=== PATIENT | female | born 1995 | race Caucasian/White ===

== ENCOUNTER → 2018-12-31 13:17 | Outpatient (CLI) | payer OTHER, SELFPAY ==
[2018-12-31 15:54] LABS: HCG,Quantitative 186 mIU/mL
== END ==
PROVIDERS: Visit Provider Obstetrics & Gynecology
DX: Z32.00 Encounter for pregnancy test, result unknown (principal)
CPT/HCPCS: 36415; 84702

== ENCOUNTER → 2019-01-27 16:01 | Outpatient (CLI) | payer OTHER, SELFPAY ==
[2019-01-27 16:44] LABS: Basophils % 0.4 % (0.1-2.0); Eosinophils # 0.1 K/mm3 (0.0-0.4); Eosinophils % 0.5 % (0.1-12.0); Hematocrit 36.4 % (37.0-47.0); Hemoglobin 11.8 g/dL (12.2-16.2); Lymphocytes # 2.3 K/mm3 (0.7-4.5); Lymphocytes % 21.6 % (10-50); Mean Corpuscular HGB Conc 32.4 g/dL (31.8-35.4); Mean Corpuscular Hemoglobin 28.8 pg (27.0-31.2); Mean Corpuscular Volume 88.9 fl (81-99); Mean Platelet Volume 7.4 fl (7.4-10.4); Monocytes # 0.3 K/mm3 (0.1-1.0); Monocytes % 2.8 % (1.7-9.3); Neutrophils # 7.9 K/mm3 (1.8-7.8); Neutrophils % 74.8 % (37.0-80.0); Platelet Count 300 K/mm3 (142-424); Red Cell Distribution Width 12.2 % (11.5-17.5); White Blood Count 10.6 K/mm3 (4.8-10.8)
[2019-01-29 08:53] LABS: HIV Screen 4th Generation wRfx Non Reactive (Non Reactive); Rubella Antibodies, IgG 2.02 index (Immune >0.99)
[2019-01-29 09:16] LABS: Rapid Plasma Reagin Ab Titer Non Reactive (NonRea<1:1)
[2019-01-29 10:21] LABS: Hepatitis B Surface Antigen Negative (Negative); Hepatitis C Antibody <0.1 s/co ratio (0.0-0.9)
== END ==
PROVIDERS: Visit Provider Obstetrics & Gynecology
DX: Z34.90 Encounter for supervision of normal pregnancy, unspecified, unspecified trimester (principal)
CPT/HCPCS: 36415; 85025; 86592; 86703; 86762; 86850; 87340; 87380; G0432

== ENCOUNTER → 2019-04-21 14:07 | Outpatient (CLI) | payer OTHER, SELFPAY ==
--- NOTE | 2019-04-21 14:09 | US_ITS ---
US OB /maternal detail: INDICATION: ITS.REASON: 20 wk + Anatomy Scan-US OB COMPLETE ORDERING PHYSICIAN: Salma Valdivia MD PATIENT AGE: 23 years TECHNIQUE: ultrasound transabdominal scanning. COMPARISON: No previous relevant studies. FINDINGS: Single viable intrauterine gestation. Cephalic position. Placenta: Anterior high placenta grade 1. There is average amount fluid. The cervix appears satisfactory. Closed and measuring 4 cm in length. Complete survey performed and was unremarkable on the submitted images as in PACS. No discrete anomalies identified on survey imaging by technologist. Active fetus. Three-vessel cord with satisfactory umbilical cord insertion. 4- chamber heart noted. Survey of brain & ventricles unremarkable. Face and neck survey unremarkable. Diaphragm and chest views unremarkable. Abdomen: Both kidneys noted and unremarkable. The stomach was not visualized during the exam. Spine: Survey of the spine satisfactory with no anomalies identified nor imaged. Both arms and legs noted. Amniotic Fluid: Adequate. Maternal adnexa: No significant findings. Measurements: Average ultrasound age 20w1d. Gestational Age 19w6d. Estimated due date by ultrasound age 1009/07/2019. Estimated weight 328 grams. BPD = 20w2d OFD = 20w3d HC = 19w5d AC = 20w0d FL = 20w0d Growth Percentile= 56% Heart Rate = 163 Cerebellum = 20w3d Humerus = 19w6d HC/AC is 1.15 1.09-1.26). CI is 78% (70-86%). FL/BPD is 70%. FL/AC is 22%. IMPRESSION: There is a single live fetus present in cephalic presentation with an average ultrasound age of 20 weeks and 1 day. All parameters correlate. The stomach was not visualized during the exam. Consider follow-up exam to further evaluate. There was average amount of amniotic fluid. If nonvisualization of the stomach is persistent then, one must consider esophageal atresia however, the amniotic fluid volume should be elevated. Otherwise unremarkable
== END ==
PROVIDERS: Visit Provider Obstetrics & Gynecology
DX: Z36.0 Encounter for antenatal screening for chromosomal anomalies (principal)
CPT/HCPCS: 76811

== ENCOUNTER 2019-06-16 08:04 | Outpatient (CLI) | payer OTHER, SELFPAY ==
[2019-06-16 08:47] LABS: Glucose,Fasting 77 mg/dL (60-105)
[2019-06-16 10:00] LABS: Glucose 1 Hour 126 mg/dL (74-106)
[2019-06-16 10:15] VITALS: BP 133/78; PULSE 105; RESP 18; O2SAT 95
== END 2019-06-16 10:20 | disposition home or self-care (01) ==
PROVIDERS: Visit Provider Obstetrics & Gynecology
DX: Z34.90 Encounter for supervision of normal pregnancy, unspecified, unspecified trimester (principal)
CPT/HCPCS: 36415; 82951; 96372; J2790

== ENCOUNTER → 2019-08-11 17:05 | Outpatient (CLI) | payer OTHER, SELFPAY | PROVIDERS: Visit Provider Obstetrics & Gynecology | DX: Z34.90 Encounter for supervision of normal pregnancy, unspecified, unspecified trimester (principal) | CPT/HCPCS: 86403 ==

== ENCOUNTER → 2019-08-31 12:47 | Outpatient (CLI) | payer OTHER, SELFPAY ==
--- NOTE | 2019-08-31 12:48 | US_ITS ---
PROCEDURE: US OB FOLLOW UP CLINICAL INDICATION: LGA and Check MJ Large for gestational age COMPARISON: OBFEMAT US OB /maternal detail from 04/21/2019 FINDINGS: There is a single live fetus which is in cephalic presentation. heart and body motion noted. Average ultrasound age is 39 weeks and 1 day. BPD 39 weeks 4 days, HC 41 weeks 2 days, FL 36 weeks 4 days. Estimated weight is 4277 g which is 98th percentile. Amniotic fluid index is 11 cm. The placenta is anterior and grade 2 IMPRESSION: Live IUP at 39 weeks 1 day with an estimated weight of 4277 g which is 98th percentile indicating large for gestational age. Please see above for detail Dictated by: Emmanuel Donovan MD 08/31/2019 18:02 Electronically signed by Emmanuel Donovan MD in [place] 08/31/2019 18:02
== END ==
PROVIDERS: Visit Provider Obstetrics & Gynecology
DX: O36.63X1 Maternal care for excessive fetal growth, third trimester, fetus 1 (principal); O41.8X30 Other specified disorders of amniotic fluid and membranes, third trimester, not applicable or unspecified
CPT/HCPCS: 76816

== ENCOUNTER 2019-09-05 15:32 | Inpatient (IN) ==
[2019-09-05 16:18] LABS: Basophils % 0.2 % (0.1-2.0); Eosinophils # 0.1 K/mm3 (0.0-0.4); Eosinophils % 0.9 % (0.1-12.0); Hematocrit 34.1 % (37.0-47.0); Hemoglobin 11.2 g/dL (12.2-16.2); Lymphocytes # 1.6 K/mm3 (0.7-4.5); Mean Corpuscular HGB Conc 32.8 g/dL (31.8-35.4); Mean Corpuscular Volume 86.3 fl (81-99); Mean Platelet Volume 9.4 fl (7.4-10.4); Monocytes # 0.4 K/mm3 (0.1-1.0); Monocytes % 3.4 % (1.7-9.3); Neutrophils # 8.7 K/mm3 (1.8-7.8); Neutrophils % 80.5 % (37.0-80.0); Platelet Count 202 K/mm3 (142-424); Red Blood Count 3.95 M/mm3 (4.20-5.40); Red Cell Distribution Width 14.7 % (11.5-17.5); White Blood Count 10.8 K/mm3 (4.8-10.8)
[2019-09-05 17:18] LABS: Microscopic, Urine URINE MICROSCOPIC (MICROSCOPIC)
[2019-09-05 17:22] LABS: Appearance,Urine CLOUDY (Clear); Bilirubin,Urine Negative (Negative); Blood, Urine 1+ (Negative); Color,Urine YELLOW (Yellow); Glucose,Urine (UA) Negative (Negative); Ketones,Urine Negative (Negative); Leukocyte Esterase,Urine 1+ (Negative); Protein,Urine TRACE (Negative); Urobilinogen,Urine 0.2 EU/dl (0.2)
[2019-09-05 17:39] LABS: Bacteria,Urine 2+ /lpf
[2019-09-05 17:43] LABS: Amphetamine/Metha Screen,Urine Negative ng/mL (<1000); Barbiturates Screen,Urine Negative ng/mL (<200); Benzodiazepines Screen,Urine Negative ng/mL (<200); Cannabinoid Screen,Urine Negative ng/mL (<50); Cocaine Screen,Urine Negative ng/mL (<300); Methadone Screen,Urine Negative ng/mL (<300); Opiate Screen,Urine Negative ng/mL (<300); Phencyclidine Screen,Urine Negative ng/mL (<25)
--- OUTSIDE RECORDS SUMMARY | 2019-09-06 12:35 | External Medical Summary | Continuity of Care Document ---
:1995 Author Organization [facility] Address [address] [place] [address] [address] [place] [address] Phone Care Team Providers Name Role Phone Skip Attending Provider Skip Primary Care Provider Provider Primary Care Provider Unavailable Allergies, Adverse Reactions, Alerts Allergen Type Severity Reaction Last Updated Verified Status nitrofurantoin Allergy Moderate September 02, 2019 Yes Active Medications Medication Status Dose Units Route Sig Qty Days Start Date End Date Instructions Vit Active 1 TAB Oral Daily January Calc,Iron,Folic 2018 2:22pm Problems Active Problems Medical Problem Onset Date Status Threatened Active Rh negative status during in first trimester Active Active Anemia affecting Active Vaginal bleeding Active Obesity (BMI 35.0-39.9 without comorbidity) Active Rh negative status during Acti ve First trimester Active First trimester bleeding Active Inactive/Resolved Problems Medical Problem Onset Date Status Hypokalemia Resolved Procedures Procedure Date Performed Status Urine Culture September 05, 2019 active US OB follow up August 31, 2019 completed Group B Streptococcus Screen (DARWIN) August 11, 2019 compl eted Relevant Diagnostic Tests and/or Laboratory Data Laboratory Results Test Date/Time Result Interpretation Reference Result Perfo rming Range Comment Site Urine Color July Caroline 2018 4:35pm Urine Color July Yellow 2018 1:38pm Urine Color August Yellow 2018 1:38pm Urine Color August Yellow 2018 3:24pm Urine Color August Yellow 2018 2:38pm Urine Color August Yellow 2018 3:41pm Urine Appearance July Cloudy 2018 4:35pm Urine Appearance July Clear 2018 1:38pm Urine Appearance October Clear 2018 1:38pm Urine Appearance October Clear 2018 3:24pm Urine Appearance October Clear 2018 2:38pm Urine Appearance October Clear 2018 3:41pm Urine Glucose Lakia Negative (UA) 2018 4:35pm Urine Glucose Lakia Negative (UA) 2018 1:38pm Urine Glucose October Negative (UA) 2018 1:38pm Urine Glucose October Negative (UA) 2018 3:24pm Urine Glucose October Negative (UA) 2018 2:38pm Urine Glucose October Negative (UA) 2018 3:41pm Urine Bilirubin Lakia negative 2018 4:35pm Urine Bilirubin Lakia negative 2018 1:38pm Urine Bilirubin October small 2018 1:38pm Urine Bilirubin August negative 2018 3:24pm Urine Bilirubin October negative 2018 2:38pm Urine Bilirubin October small 2018 3:41pm Urine Ketones Lakia Negative 2018 mg/dL 4:35pm Urine Ketones Lakia Trace 5 2018 mg/dL 1:38pm Urine Ketones October Moderate 2018 40 mg/dL 1:38pm Urine Ketones October Trace 5 2018 mg/dL 3:24pm Urine Ketones October Negative 2018 mg/dL 2:38pm Urine Ketones October Small 15 2018 mg/dL 3:41pm Urine Protein July 30+ 2018 4:35pm Urine Specific Lakia 1.030 Echo 2018 1:38pm Urine Protein August 302018 1:38pm Urine Protein August 302018 3:24pm Urine Protein August 30+ 2018 2:38pm Urine Protein August 100++ 2018 3:41pm Urine pH Lakia 6.0 2018 4:35pm Urine Blood Lakia negative 2018 1:38pm Urine pH October 6.0 2018 1:38pm Urine pH August 6.5 2018 3:24pm Urine pH October 6.5 2018 2:38pm Urine pH October 6.0 2018 3:41pm Urine Blood July negative 2018 4:35pm Urine pH Lakia 6.0 2018 1:38pm Urine Blood October negative 2018 1:38pm Urine Blood October negative 2018 3:24pm Urine Blood October negative 2018 2:38pm Urine Blood October negative 2018 3:41pm Urine Specific Lakia 1.030 Echo 2018 4:35pm Urine Protein Lakia 30+ 2018 1:38pm Urine Specific October 1.025 Echo 2018 1:38pm Urine Specific October 1.030 Echo 2018 3:24pm Urine Specific October 1.030 Echo 2018 2:38pm Urine Specific October 1.030 Echo 2018 3:41pm Urine Lakia 0.2 Urobilinogen 2018 Dipstick 4:35pm Urine Lakia 0.2 Urobilinogen 2018 Dipstick 1:38pm Urine October 0.2 Urobilinogen 2018 Dipstick 1:38pm Urine October 0.2 Urobilinogen 2018 Dipstick 3:24pm Urine October 0.2 Urobilinogen 2018 Dipstick 2:38pm Urine October 0.2 Urobilinogen 2018 Dipstick 3:41pm Urine Nitrate Lakia Negative 2018 4:35pm Urine Nitrate Lakia Negative 2018 1:38pm Urine Nitrate October Negative 2018 1:38pm Urine Nitrate October Negative 2018 3:24pm Urine Nitrate October Negative 2018 2:38pm Urine Nitrate October Negative 2018 3:41pm Urine Leukocyte Lakia Trace Esterase 2018 4:35pm Urine Leukocyte Lakia Negative Esterase 2018 1:38pm Urine Leukocyte October Trace Esterase 2018 1:38pm Urine Leukocyte October Trace Esterase 2018 3:24pm Urine Leukocyte October Trace Esterase 2018 2:38pm Urine Leukocyte October Trace Esterase 2018 3:41pm White Blood Count August 10.8 K/mm3 4.8-10.8 [facility], [address] [place] [address] 2018 4:07pm [place] [address] Red Blood Count August 3.95 M/mm3 4.20-5.40 [facility], [address] [place] [address] 2018 4:07pm [place] [address] Hemoglobin August 11.2 g/dL 12.2-16.2 [facility], [address] [place] [address] 2018 4:07pm [place] [address] Hematocrit August 34.1 % 37.0-47.0 [facility], [address] [place] [address] 36 E 2018 4:07pm [place] [address] Mean Corpuscular October 86.3 fl 81-99 [facility], [address] [place] [address] 36 E Volume 2018 4:07pm [place] [address] Mean Corpuscular October 28.3 pg 27.0-31.2 [facility], [address] [place] [address] 36 E Hemoglobin 2018 4:07pm [place] [address] Mean Corpuscular October 32.8 g/dL 31.8-35.4 [facility], [address] [place] [address] 36 E Hemoglobin 2018 Concent 4:07pm [place] [address] Red Cell August 14.7 % 11.5-17.5 [facility], [address] [place] [address] 36 E Distribution 2018 Width 4:07pm [place] [address] Platelet Count August 202 K/mm3 142-424 [facility], [address] [place] [address] 36 E 2018 4:07pm [place] [address] Mean Platelet August 9.4 fl 7.4-10.4 [facility], [address] [place] [address] E Volume 2018 4:07pm [place] [address] Neutrophils (%) August 80.5 % 37.0-80.0 [facility], [address] [place] [address] 36 E (Auto) 2018 4:07pm [place] [address] Lymphocytes (%) August 15.0 % 10-50 [facility], [address] [place] [address] E (Auto) 2018 4:07pm [place] [address] Monocytes (%) August 3.4 % 1.7-9.3 [facility], [address] [place] [address] E (Auto) 2018 4:07pm [place] [address] Eosinophils (%) August 0.9 % 0.1-12.0 [facility], [address] [place] [address] 36 E (Auto) 2018 4:07pm [place] [address] Basophils (%) August 0.2 % 0.1-2.0 [facility], [address] [place] [address] 36 E (Auto) 2018 4:07pm [place] [address] Neutrophils # October 8.7 K/mm3 1.8-7.8 [facility], [address] [place] [address] E (Auto) 2018 4:07pm [place] [address] Lymphocytes # October 1.6 K/mm3 0.7-4.5 [facility], [address] [place] [address] 36 E (Auto) 2018 4:07pm [place] [address] Monocytes # October 0.4 K/mm3 0.1-1.0 [facility], [address] [place] [address] 36 E (Auto) 2018 4:07pm [place] [address] Eosinophils # October 0.1 K/mm3 0.0-0.4 [facility], [address] [place] [address] E (Auto) 2018 4:07pm [place] [address] Basophils # October 0.0 K/mm3 0-0.2 [facility], [address] [place] [address] E (Auto) 2018 4:07pm [place] [address] Urine Color October Yellow Yellow [facility], [address] [place] [address] 36 E 2018 4:10pm [place] [address] Urine Appearance October Cloudy Clear [facility], [address] [place] [address] E 2018 4:10pm [place] [address] Urine pH August 7.0 5.0-8.5 [facility], [address] [place] [address] 36 E 2018 4:10pm [place] [address] Urine Specific October 1.020 1.005-1.030 [facility], [address] [place] [address] E Echo 2018 4:10pm [place] [address] Urine Protein October Trace Negative [facility], [address] [place] [address] 36 E 2018 4:10pm [place] [address] Urine Glucose October Negative Negative [facility], [address] [place] [address] E (UA) 2018 4:10pm [place] [address] Urine Ketones October Negative Negative [facility], [address] [place] [address] 36 E 2018 4:10pm [place] [address] Urine Blood October 1+ Negative [facility], [address] [place] [address] E 2018 4:10pm [place] [address] Urine Nitrate August Negative Negative [facility], [address] [place] [address] E 2018 4:10pm [place] [address] Urine Bilirubin August Negative Negative [facility], [address] [place] [address] E 2018 4:10pm [place] [address] Urine October 0.2 EU/dl [facility], [address] [place] [address] E Urobilinogen 2018 4:10pm [place] [address] Urine Leukocyte August 1+ Negative [facility], [address] [place] [address] E Esterase 2018 4:10pm [place] [address] Urine RBC August 14 #/hpf [facility], [address] [place] [address] E 2018 4:10pm [place] [address] Urine WBC August 19 [facility], [address] [place] [address] E 2018 #/hpf 4:10pm [place] [address] Urine Squamous August 19 [facility], [address] [place] [address] E Epithelial Cells 2018 #/hpf 4:10pm [place] [address] Urine Bacteria August 2+ /lpf NONE [facility], [address] [place] [address] E 2018 4:10pm [place] [address] Fasting Glucose June 16, 77 mg/dL 60-105 [facility], [address] [place] [address] 36 E 2018 8:05am [place] [address] Glucose 1 Hour June 16, 126 mg/dL 74-106 [facility], [address] [place] [address] 36 E 2018 8:05am [place] [address] Urine Fasting June 16, Negative [facility], [address] [place] [address] E Glucose 2018 8:05am mg/[place] [address] Urine Glucose 1 June 16, Negative [facility], [address] [place] [address] E Hour 2018 8:05am mg/dL [place] [address] Urine Opiates August Negative [facility], [address] [place] [address] E Screen 2018 ng/mL 4:10pm [place] [address] Urine Barbituates August Negative [facility], [address] [place] [address] E Screen 2018 ng/mL 4:10pm [place] [address] Urine August Negative [facility], [address] [place] [address] E Phencyclidine 2018 ng/mL Screen 4:10pm [place] [address] Urine October Negative [facility], [address] [place] [address] 36 E Amphetamines 2018 ng/mL Screen 4:10pm [place] [address] Urine Methadone August Negative [facility], [address] [place] [address] E Screen 2018 ng/mL 4:10pm [place] [address] Urine October Negative [facility], [address] [place] [address] E Benzodiazepines 2018 ng/mL Screen 4:10pm [place] [address] Urine Cocaine August Negative [facility], [address] [place] [address] E Screen 2018 ng/mL 4:10pm [place] [address] Urine Marijuana August Negative [facility], [address] [place] [address] E (THC) Screen 2018 ng/mL 4:10pm [place] [address] Microbiology Results Procedure Source Result Collection Result Result Performin g Date/Time Date/Time Comment Site Group B Vaginal Negative for August 11, August 14, H [facility], [address] [place] [address] E Streptococcus Group B 2018 1:37pm 2018 9:06am Screen (DARWIN) [place] [address] s. Diagnostic Imaging Reports Report Dictated Date/Time Dictated By Status Radiology Report August 31, 2019 1:28pm Emmanuel Donovan MD compl [place]ed [place] [address] [place] [address] Ultrasoun d Report Sig federico Patient: Caroline Ca MR#: [id number] : 1995 Acct:[id number] Age/Sex: 24 / F ADM Date: 9 Loc: RAD Attending Dr: Salma Valdivia MD Ordering Physician: Salma Valdivia MD Date of Service: 08/31/19 Procedure(s): US OB follow up Accession Number(s): [id number] cc: Emmanuel Donovan MD; Provider,Referral MD~ PROCEDURE: US OB FOLLOW UP CLINICAL INDICATION: LGA and Check MJ Large for gestational age COMPARISON: OBFEMAT US OB /matern al detail from 04/21/2019 FINDINGS: There is a single live fetus which is i n cephalic presentation. heart and body motion noted. Average ultrasound age is 39 weeks and 1 day. BPD 39 weeks 4 days, HC 41 weeks 2 days, FL 36 weeks 4 days. Estimated weight is 4277 g which is 98th percentile. Amniotic fluid index is 11 cm. The placenta is anterior and grade 2 IMPRESSION: Live IUP at 39 weeks 1 day with an federico mated weight of 4277 g which is 98th percentile indicating lar ge for gestational age. Please see above for detail Dictated by: Emmanuel Donovan MD 08/31/2019 18:02 Electronically signed by Emmanuel Donovan in [place] 08/31/2019 18:02 Advance Directives Advance Directive Response Recorded Date/Time Does the patient have an advanced directive on No August 11, 2019 2:13pm file? Living Will No August 11, 2019 2: 13pm Does the patient have an advanced directive on No August 11, 2019 2:36pm file? Living Will No August 11, 2019 2: 36pm Does the patient have an advanced directive on No September 02, 2019 2:52pm file? Living Will No September 02, 2019 2 :52pm Does the patient have an advanced directive on No June 16, 2019 6:56pm file? Living Will No June 16, 2019 6:5 6pm Chief Complaint and Reason for Visit Chief Complaint LAB WORK INJECTION lab work growth ASI Induction Encounters Encounter Location(s) Arrival/Admit Date Discharge/Depart Date Provider(s) Departed [facility] Physician June 16, 2019 June 16, 2019 Salma Valdivia [facility] 8:04am 10:20am Departed [facility] Physician June 16, 2019 June 16, 2019 Salma Valdivia Physician/[facility] 9:31am 10:01am eleazar [facility] Visit Departed [facility] Physician July 14July 14, 2019 Salma Valdivia Physician/[facility] 2018 1:10pm 1:47pm MD bush [facility] Visit Departed [facility] Physician July 28, July 28, 2019 Physician Joel ra/[facility] 2018 1:13pm 1:56pm MD [facility] Visit Departed [facility] Physician August 11, 2019 August 11, 2019 Drew Valdivia , Physician/[facility] 1:16pm 2:22pm MD [facility] Visit Registered [facility] Physician August 11, 2019 Salma del angel , Clinical Group-Lab Drop 5:05pm MD Off to [facility] Departed [facility] Physician August 19, 2019 August 19, 2019 Elva Valdivia , Physician/[facility] 1:49pm 3:13pm MD [facility] Visit Departed [facility] Physician August 26, 2019 August 26, 2019 Elva Valdivia , Physician/[facility] 2:15pm 3:49pm [facility] Visit Registered [facility] Physician August 31, 2019 Salma spaulding , Clinical Group-Radiology 12:47pm MD Departed [facility] Physician September 02, 2019 September 02, 2019 Elva Valdivia Physician/[facility] 2:35pm 4:25pm [facility] Visit Admitted [facility] Physician September 05, 2019 Salma spaulding , Inpatient Group-Obstetric 3:32pm Registered [facility] Physician September 06, 2019 Salma spaulding , Inpatient Group- 12:27pm MD Assessments No Assessments Information Available Functional Status Observation Response Date Recorded Ambulation Ability Independent June 16, 2019 10: 20am Functional status ambulatory August 27, 2019 1 2:15pm Functional status ambulatory August 19, 2019 3 :39pm Functional status ambulatory August 11, 2019 2: 13pm Oral Care Ability Independent August 11, 2019 2: 13pm Bathing Ability Independent August 11, 2019 2: 13pm Eating (Feeding) Ability Independent August 11 2:13pm Toileting Ability Independent August 11, 2019 2: 13pm Ambulation Ability Independent August 11, 2019 2: 13pm Functional status ambulatory August 11, 2019 2: 36pm Functional status ambulatory September 02, 2019 2 :52pm Functional status ambulatory July 28, 2019 1:57pm Functional status ambulatory June 16, 2019 6:5 6pm Goals No Goals Information Available Mental Status Observation Response Date Recorded Able to Read Yes September 05, 2019 4 :15pm Able to Write Yes September 05, 2019 4 :15pm Medical Equipment No Medical Equipment Information available Insurance Providers Guarantor Caroline Ca Address [address] [place] [address] Contact Info. Home Phone: Payer Policy Id Coverage Id Subscriber's Subscriber Id Effective E xpiration Name Date Date Oren [id number] Caroline Ruiz [id number] [employer] [place] Self Pay Self N/A [facility] [id number] JEM [place] [id number] [facility] Plan of Treatment Labor precautions, kick counts RTO 1 wk Routine care RTO 1 wk Labor precautions, kick counts advised GBS collected today RTO 1 wk PTL precautions, kick counts RTO 2 wks RTO 2 wks GBS culture next appointment PTL precautions, kick counts Routine care S/P rhogam today RTO 4 wks Future Tests Future scheduled test information is unavailable Pending Tests Pending diagnostic test information is unavailable Future Visits Future appointment information is unavailable Referrals to Other Providers Reason for Referral Start Provider Provider Contact Provider Address Referral Date Information Admission to [facility] September [address] Future Procedures Future procedure information is unavailable Future Medications Future medication information is unavailable Patient Instructions How to Breastfeed Your Baby Anemia How to Breastfeed Your Baby Overweight in Adults Anemia Overweight in Adults Anemia Diet Overweight in Adults Anemia Diet Overweight in Adults Anemia Diet Overweight in Adults Anemia Diet How to Breastfeed Your Baby Diet Social History Observation Status Date of Observation Patient currently September 02, 2019 Assigned Sex Female Vital Signs Vital Reading Result Reference Range Collection Date/ Time Heart Rate 105 /min 60-90 June 16, 2019 10:15am Respiratory rate 18 /min 12-24 June 16, 9 10:15am Oxygen saturation by Pulse 95 % 95-100 2018 10:15am oximetry BP Systolic 133 mm[Hg] 110-140 June 16, 2019 10:15am BP Diastolic 78 mm[Hg] 60-90 June 16, 2019 10:15am Height 177.8 cm June 16, 2019 9:35am Weight 120.20 kg June 16, 2019 9:35am BP Systolic 124 mm[Hg] 110-140 June 16, 2019 9:35am BP Diastolic 80 mm[Hg] 60-90 June 16, 2019 9:35am BMI (Body Mass Index) 38.0 kg/m2 June 9:35am Height 177.8 cm July 14, 2 019 1:22pm Weight 122.46 kg July 14, 2 019 1:22pm BP Systolic 118 mm[Hg] 110-140 July 14, 2 019 1:22pm BP Diastolic 72 mm[Hg] 60-90 July 14, 2 019 1:22pm BMI (Body Mass Index) 38.7 kg/m2 July 14, 2019 1:22pm Height 177.8 cm July 28, 2019 1:37pm Weight 124.28 kg July 28, 2019 1:37pm Heart Rate 88 /min 60-90 July 28, 2019 1:37pm BP Systolic 128 mm[Hg] 110-140 July 28, 2019 1:37pm BP Diastolic 76 mm[Hg] 60-90 July 28, 2019 1:37pm BMI (Body Mass Index) 39.3 kg/m2 July 28, 2019 1:37pm Height 177.8 cm August 11 201 9 1:22pm Weight 124.73 kg August 11 201 9 1:22pm Heart Rate 76 /min 60-90 August 11 201 9 1:22pm BP Systolic 110 mm[Hg] 110-140 August 11 201 9 1:22pm BP Diastolic 94 mm[Hg] 60-90 August 11 201 9 1:22pm BMI (Body Mass Index) 39.4 kg/m2 August 1:22pm Height 177.8 cm August 19 2:44pm Weight 127.00 kg August 19 2:44pm BP Systolic 122 mm[Hg] 110-140 August 19 2:44pm BP Diastolic 84 mm[Hg] 60-90 August 19 2:44pm BMI (Body Mass Index) 40.1 kg/m2 August 192018 2:44pm Height 177.8 cm August 26 2:26pm Weight 128.82 kg August 26 2:26pm BP Systolic 118 mm[Hg] 110-140 August 26 2:26pm BP Diastolic 78 mm[Hg] 60-90 August 26 2:26pm BMI (Body Mass Index) 40.7 kg/m2 August 262018 2:26pm Height 177.8 cm September 02 2:44pm Weight 128.82 kg September 02 2:44pm BP Systolic 140 mm[Hg] 110-140 September 02 2:44pm BP Diastolic 94 mm[Hg] 60-90 September 02 2:44pm BMI (Body Mass Index) 40.7 kg/m2 September 022018 2:44pm Height 49003.8 cm September 05 4:15pm Weight 128.82 kg September 05 4:15pm Body Temperature 98.0 [degF] 97.6-99.6 September 06, 2 019 8:00am Heart Rate 88 /min 60-90 September 06 8:00am Respiratory rate 17 /min -September 06, 2 019 8:00am Oxygen saturation by Pulse 98 % 95-100 Octob 2018 8:00am oximetry BP Systolic 118 mm[Hg] 110-140 September 06 8:00am BP Diastolic 74 mm[Hg] 60-90 September 06 8:00am BMI (Body Mass Index) 0.0 kg/m2 September 052018 4:15pm
--- NOTE | 2019-09-06 14:18 | Progress Note ---
[facility] Anesthesia Checklist - Patient Identification Patient Identification: Arm Band, Verbal (Name & ) - Structural Data Admitted From: Home Planned Operative Procedure/s: labor epidural Consent for Planned Operative Procedure(s) Verified: Yes Verified Documents: History and Physical - NPO Status Verified Time NPO: 12:00 - Additional verifications Patient : Yes Anesthesia Reactions: No Hx Blood Transfusions: No Blood Transfusion Reaction: No Cephalosporin Allergy: No Previous Colonoscopy: No - Cardiovascular Assessment Heart Sounds: S1 & S2 Pulse Strength: Baseline Pulse Rhythm: Regular Peripheral Edema: No - Airway Assessment C-Spine Mobility Assessed: Yes TMJ Mobility Assessed: Yes Dentition: Good Dentition - Neurological Assessment Level of Consciousness: Awake, Alert, Appropriate Hx Seizures: No Numbness or tingling in extremities: No - Anesthesia Plan Anesthesia Risk discussed: Yes Anesthesia Plan: Verified ASA Class: II Anesthesia Type: Epidural [facility] History I have reviewed the patient's past medical history: Yes Medical History: Reports:: Anxiety, Asthma, Depression *Have you ever received a pneumonia vaccine?: No *Have you received a flu vaccine this season?: No Other Medical History: Reports: Other Anesthesia experience/problems:: none Laterality Cases: Other Surgeries: No: Amputation: No Fractures: Yes - *Social History Smoking Status: Never smoker Alcohol Intake: never Alcohol Intake Frequency:: holidays/special occasions only Substance Use Type: denies use *Occupational Status:: employed Housing: house Household Members: family *Travel in the last 8 weeks: None - Psychiatric History Pschychiatric History:: Reports:: Anxiety, Depression Family Hx:: Cancer, Diabetes, Heart Attack, Hypertension, Hyperlipidemia, Thyroid Disorder, Asthma Para: 0
--- NOTE | 2019-09-06 19:12 | History & Physical Report ---
OB - H&P: HPI Antepartum - History of Present Illness Chief complaint: Induction of Labor, 39 4/7 weeks History of present illness: 24 year old G1 @ 39 4/7 wks Scheduled for elective induction due to gestational hypertension No history of CHTN, significant proteinuria or abnormal serum labs, but blood pressure elevated during office visit at 39 wks Irregular contractions, but no signs of labor No LOF or vaginal bleeding Normal movement, and reassuring testing at 39 wk appointment with reactive NST significant for mild anemia, obesity and Rh negative maternal status (s/p Rhogam at 28 wks) [facility] History I have reviewed the patient's past medical history: Yes Medical History: Reports:: Anxiety, Asthma, Depression Denies:: Seizures *Have you ever received a pneumonia vaccine?: No *Have you received a flu vaccine this season?: No Other Medical History: Reports: Other. Denies: Blood Transfusion Reaction Anesthesia experience/problems:: none Laterality Cases: Other Surgeries: No: Amputation: No Fractures: Yes - *Social History Educational Level: Completed High School Smoking Status: Never smoker Alcohol Intake: never Alcohol Intake Frequency:: holidays/special occasions only Substance Use Type: denies use *Occupational Status:: employed Housing: house Household Members: family *Travel in the last 8 weeks: None - Psychiatric History Expresses thoughts of harming self/others: None Pschychiatric History:: Reports:: Anxiety, Depression Family Hx:: Cancer, Diabetes, Heart Attack, Hypertension, Hyperlipidemia, Thyroid Disorder, Asthma ORDER DESK CLERK history: No ORDER DESK CLERK history (G1 current) : 1 Para: 0 LMP comments: Review of Systems - Review of Systems CONSTITUTIONAL: no fever/chills HEENT: no oral lesions PULMONARY: no shortness of breath or difficulty breathing CV: no racing heart, palpitations or chest pain ABD: no abdominal pain, N/V : + irreg ctx; no LOF or VB SKIN: no new rash or skin lesions EXT: no edema NEURO: no mental status changes PSYCH: no current anxiety/depression OB: normal FM Meds Home Medications Medication Instructions Recorded Confirmed Type 1 tab PO DAILY 01/27/19 09/06/19 History vitamin,calcium,cdnuqnmw-bbgc-pwtcb acid tablet Allergies Allergy/AdvReac Type Severity Reaction Status Date / Time nitrofurantoin Allergy Intermediate Verified 09/02/19 14:48 [From Macrobid] OB - H&P: Exam - Physical Exam Vital signs: Temp Pulse Resp BP Pulse Ox 98.0 F 88 17 118/74 98 09/06/19 08:00 09/06/19 08:00 09/06/19 08:00 09/06/19 08:00 09/06/19 08:00 Narrative: CONSTITUTIONAL: no acute distress HEENT: mucous membranes moist PULMONARY: breathing unlabored without audible wheezes CV: no tachycardia or visible JVD; normal LE peripheral pulses ABD: soft, NT/ND, no guarding. Gravid uterus. : cervix 3/70/-1 AROM with clear fluid noted; IUPC and FSE placed without difficulty or complication SKIN: no visible rash or lesions HEME: no lymphadenopathy EXT: 1+ edema LEs NEURO: alert/oriented, no altered mental status PSYCH: appropriate mood and demeanor without visible anxiety/depression NST: Basline: 140's Variability: moderate Accelerations: yes Decelerations: no Impression: Reactive, Category 1 OB - A/P Antepartum (1) 39 weeks gestation of Current visit: No Status: Acute (2) Gestational hypertension Current visit: No Status: Acute (3) Rh negative status during Current visit: No Status: Acute (4) Anemia affecting Problem details: HgB 11.8 Current visit: No Status: Acute (5) Obesity (BMI 35.0-39.9 without comorbidity) Current visit: No Status: Acute - Additional Plan Additional Information:: IOL for Gestational Hypertension at term S/P cervidil for ripening of unfavorable cervix last pm Pitocin begun this am per protocol Amniotomy performed and internal /uterine monitors placed Epidural for pain relief at patient request Continuous monitoring
--- NOTE | 2019-09-06 19:19 | Progress Note ---
Labor Note - Subjective: Date: 09/06/19 Time: 17:47 Comment:: Regular contractions, pitocin drip at 28mU Comfortable with epidural Cervix 5cm/70/-1 heart tracing overall reassuring, with accelerations and moderate variability Baseline increase from 140's to 160's Will continue to monitor - Assessment: Patient Problems: All Active Problems 39 weeks gestation of (Acute) Gestational hypertension (Acute) Anemia affecting (Acute) Rh negative status during (Acute) Obesity (BMI 35.0-39.9 without comorbidity) (Acute) (Acute) Vaginal bleeding (Acute) First trimester bleeding (Acute) First trimester (Acute) Rh negative status during in first trimester (Acute) Threatened (Acute)
--- NOTE | 2019-09-06 19:26 | Progress Note ---
Labor Note - Subjective: Date: 09/06/19 Time: 19:00 Comment:: Still ba q 2-4 minutes, but decreased amplitude since pitocin discontinued heart tracing has maintained moderate variability, but baseline has progressively increased from 160's to 180's and now 200-210 Maternal temp currently 99.2 (oral) but maternal pulse remains in 80's Cervix unchanged from last exam 90 minutes ago: Patient and counseled that continued pitocin augmentation and labor management inappropriate in the setting of tachycardia in the 200's, without any change in maternal cervical exam She was counseled to proceed to the OR for immediate delivery, and all questions were answered to their satisfaction Pitocin remains off, and she was given Tylenol 650 po for maternal temp and tachycardia - Assessment: Patient Problems: All Active Problems 39 weeks gestation of (Acute) Gestational hypertension (Acute) Anemia affecting (Acute) Rh negative status during (Acute) Obesity (BMI 35.0-39.9 without comorbidity) (Acute) (Acute) Vaginal bleeding (Acute) First trimester bleeding (Acute) First trimester (Acute) Rh negative status during in first trimester (Acute) Threatened (Acute)
--- NOTE | 2019-09-06 21:00 | Operative Note ---
Date of procedure: 09/06/19 Pre-op Diagnosis:: 1. 39 4/7 weeks gestation 2. Gestational Hypertension 3. tachycardia 4. Maternal obesity 5. Maternal Rh negative status 6. Maternal anemia Post-op Diagnosis:: 1. 39 4/7 weeks gestation 2. Gestational Hypertension 3. tachycardia 4. Maternal obesity 5. Maternal Rh negative status 6. Maternal anemia Procedure performed:: Primary LTCS Surgeon:: Salma Valdivia MD Manager Of Corporate(s):: Elizabeth Lopez METAL DOOR ASSEMBLER:: Adi Cervantes Anesthesia: epidural Estimated blood loss (mL): 1,000 Operative findings:: Grossly normal uterus, fallopian tubes and ovaries Vigorous male , apgars 8 & 9, nuchal cord x 1, terminal meconium Operative note:: The patient was taken to the OR and epidural level was found to be adequate. heart tones were confirmed at 188. She was prepped and draped in normal sterile fashion. A pfannenstiel skin incision was made with the scalpel and carried down to the fascia. The fascia was incised in the midline and sharply dissected off the rectus muscles. The muscles were in the midline and the peritoneum was entered sharply and extended bluntly. The Parvez-O self retaining retractor was placed in the abdomen and a bladder flap was created. The uterus was incised in the lower uterine segment in a transverse fashion and extended bluntly. Terminal meconium was noted upon entry into the uterus. The was delivered in controlled fashion, without complication or shoulder dystocia. A nuchal cord x 1 was reduced on the field prior to delivery of the shoulders. Delee suction was performed immediately after delivery. The was vigorous at and handed to awaiting reimbursement coordinator for evaluation after cord clamped and cut. Cord blood was collected and a cord segment was preserved; pH was sent. The placenta was manually extracted and noted to be intact and grossly normal appearing, without evidence of abruption. The uterus was repaired with 0-vicryl in a running/locked fashion. A second layer was placed for hemostasis. The peritoneum was closed with 2-0 vicryl in a running fashion. The fascia was closed with #1 vicryl in a running fashion. The subcutaneous fat was closed with 2-0 vicryl in an interrupted fashion. The skin was closed with lynn. The patient tolerated the procedure well. Sponge, lap, needle and instrument counts were correct x 2. She was taken to PACU awake and in stable condition. Condition: stable Disposition: PACU Specimens:: cord pH Complications:: None
--- NOTE | 2019-09-06 21:04 | Progress Note ---
[facility] Anesthesia Record Part I Intake, IV Amount: 1,500 Estimated blood loss (mL): 1,000 Urine output (mL): 200 Blood Pressure: 142/95 SaO2: 95 Pulse Rate: 102 Respiratory Rate: 12 Temperature: 98.2 F Patient is:: Awake, Stable Stable to PACU at:: 21:00
--- NOTE | 2019-09-06 21:05 | Progress Note ---
[facility] Anesthesia Record Part II Discharge Time: 21:30 Destination: Obstetric PACU nurse assessment reviewed?: Yes Patient Condition:: Good Anesthesia Complications:: None Swallowing reflex intact?: Yes Cyanosis?: No
[2019-09-07 07:00] LABS: Basophils % 0.1 % (0.1-2.0); Eosinophils % 0.1 % (0.1-12.0); Hematocrit 30.5 % (37.0-47.0); Hemoglobin 9.7 g/dL (12.2-16.2); Lymphocytes # 1.1 K/mm3 (0.7-4.5); Lymphocytes % 7.3 % (10-50); Mean Corpuscular HGB Conc 31.7 g/dL (31.8-35.4); Mean Corpuscular Volume 87.1 fl (81-99); Mean Platelet Volume 8.9 fl (7.4-10.4); Monocytes # 0.6 K/mm3 (0.1-1.0); Monocytes % 3.8 % (1.7-9.3); Neutrophils # 13.5 K/mm3 (1.8-7.8); Neutrophils % 88.6 % (37.0-80.0); Platelet Count 180 K/mm3 (142-424); Red Cell Distribution Width 14.8 % (11.5-17.5); White Blood Count 15.2 K/mm3 (4.8-10.8)
[2019-09-07 07:48] LABS: Lymphocytes % 7 % (10-50); Monocytes % 3 % (2-9); Neutrophils % 86 % (42-76); Total Cells Counted 100
[2019-09-07 07:49] LABS: RBC Morphology Normal
--- NOTE | 2019-09-07 08:34 | Pharmacy Consult Notes ---
[facility] Pharmacy VTE Monitoring - Patient Demographics Admission date: 09/06/19 Report Date: 09/07/19 Time: 08:34 Allergies/Adverse Reactions: Patient Allergies nitrofurantoin [From Macrobid] Allergy (Intermediate, Verified 09/02/19 14:48) Height: 155.45 m Weight: 128.82 kg Patient Problems: Current Active Problems 39 weeks gestation of (Acute) Gestational hypertension (Acute) Anemia affecting (Acute) Rh negative status during (Acute) Obesity (BMI 35.0-39.9 without comorbidity) (Acute) - VTE Risk Labs: VTE Related Lab Results Hgb 9.7 g/dL (12.2-16.2) L 09/07/19 06:10 Hct 30.5 % (37.0-47.0) L 09/07/19 06:10 Plt Count 180 K/mm3 (142-424) 09/07/19 06:10 - Prophylaxis VTE Prophylaxis Ordered?: Yes Types of VTE Prophylaxis: IPCS Thigh High Location of Applied Device: Bilateral Lower Extremeties - VTE Diagnosis Confirmed Treatment or plan recommended: Continue Current Treatment
--- NOTE | 2019-09-07 11:16 | Progress Note ---
Internal Medicine - PN: Subj *Date: 09/07/19 *Time: 11:12 Interval history: POD #1 s/p Primary C Section No unusual complaints Tolerating regular diet Catheter removed this am, but has not voided yet Lochia appropriate amount Pain control sufficient Asymptomatic with [id number] anemia Exam Vital signs and Labs for Last 24 Hours: Temp Pulse Resp BP Pulse Ox 98.1 F 110 H 18 119/80 97 09/07/19 08:00 09/07/19 08:00 09/07/19 08:00 09/07/19 08:00 09/07/19 08:00 Laboratory Results - last 24 hr 09/06/19 20:21: Cord ABG pH 7.39 09/07/19 06:10: WBC 15.2 H D, RBC 3.50 L, Hgb 9.7 L, Hct 30.5 L, MCV 87.1, MCH 27.6, MCHC 31.7 L, RDW 14.8, Plt Count 180, MPV 8.9, Neut % (Auto) 88.6 H, Lymph % (Auto) 7.3 L, [place] % (Auto) 3.8, Eos % (Auto) 0.1, Baso % (Auto) 0.1, Neut # (Auto) 13.5 H, Lymph # (Auto) 1.1, [place] # (Auto) 0.6, Eos # (Auto) 0.0, Baso # (Auto) 0.0, Total Counted 100, Neutrophils % (Manual) 86 H, Band Neutrophils % 3.0, Lymphocytes % (Manual) 7 L, Atypical Lymphs % 1.0, Monocytes % (Manual) 3, Platelet Estimate Normal, RBC Morphology Normal I & O for Last 24 hours: Intake & Output 09/04/19 09/05/19 09/06/19 09/07/19 11:59 11:59 11:59 11:59 Intake Total 2150 / 2150 Output Total 700 / 700 Balance 1450 / 1450 Weight 284 lb Microbiology Reports for the Last 24 Hours: Microbiology 09/05/19 16:10 Urine,Clean Catch Urine Culture - Final Multiple organisms, suggests contamination. Narrative: CONSTITUTIONAL: no acute distress HEENT: mucous membranes moist PULMONARY: breathing unlabored without audible wheezes CV: no tachycardia or visible JVD; normal LE peripheral pulses ABD: soft, ND; appropriately tender but no rebound/guarding : fundus firm at/below umbilicus SKIN: incision well approximated with no drainage, erythema or induration EXT: 1+ edema LEs NEURO: alert/oriented, no altered mental status PSYCH: appropriate mood and demeanor without anxiety/depression Assessment and Plan (1) 39 weeks gestation of Current visit: No Status: Acute Category: Medical Code(s): Z3A.39 - 39 weeks gestation of (2) Gestational hypertension Current visit: No Status: Acute Category: Medical Code(s): O13.9 - Gestational [-induced] hypertension without significant proteinuria, unspecified trimester (3) tachycardia Current visit: No Status: Acute Category: Medical (4) Status post Current visit: No Status: Acute Category: Surgical Code(s): Z98.891 - History of uterine scar from previous surgery (5) Rh negative status during Current visit: No Status: Acute Category: Medical Code(s): O26.899 - Other specified related conditions, unspecified trimester; Z67.91 - Unspecified blood type, Rh negative (6) Anemia affecting Problem details: HgB 11.8 Current visit: No Status: Acute Category: Medical Code(s): O99.019 - Anemia complicating , unspecified trimester (7) Obesity (BMI 35.0-39.9 without comorbidity) Current visit: No Status: Acute Category: Medical Code(s): E66.9 - Obesity, unspecified (8) Anemia associated with acute blood loss Current visit: No Status: Acute Category: Medical Code(s): D62 - Acute posthemorrhagic anemia - Assessment and plan all Dx Assessment and Plan for all problems:: Continue routine postop/ care; advance care as tolerated Continue PNV with FeSO4 for [id number]-krpwskv anemia
--- NOTE | 2019-09-08 13:51 | Discharge Summary ---
General - General Admission date:: 09/05/19 Discharge date: 09/08/19 HPI HPI: POD #2 primary LTCS No complaints Ambulating and voiding without difficulty Tolerating regular diet Hospital Course Hospital Course: per HPI Rhogam Administration: Not Indicated Objective Vital signs: Temp Pulse Resp BP Pulse Ox 98.3 F 104 H 20 130/88 98 09/08/19 11:33 09/08/19 11:33 09/08/19 11:33 09/08/19 11:33 09/08/19 11:33 Narrative: CONSTITUTIONAL: no acute distress HEENT: mucous membranes moist PULMONARY: breathing unlabored without audible wheezes CV: no tachycardia or visible JVD; normal LE peripheral pulses ABD: soft, ND; appropriately tender but no rebound/guarding : fundus firm at/below umbilicus SKIN: incision well approximated with no drainage, erythema or induration EXT: 1+ edema LEs NEURO: alert/oriented, no altered mental status PSYCH: appropriate mood and demeanor without anxiety/depression DS: Diagnosis - Discharge Diagnosis (1) 39 weeks gestation of Status: Acute (2) Gestational hypertension Status: Acute (3) tachycardia Status: Acute (4) Status post Status: Acute (5) Rh negative status during Status: Acute (6) Anemia affecting Status: Acute Problem details: HgB 11.8 (7) Obesity (BMI 35.0-39.9 without comorbidity) Status: Acute (8) Anemia associated with acute blood loss Status: Acute Discharge Plan - Patient Discharge Instructions ACTIVITY: Continue current activity DIET: regular diet Additional Instructions: No heavy lifting, no driving for 2 weeks or while taking prescription narcotics, nothing in the vagina for 6 weeks. Patient Instructions: Depression, Hemorrhage, DI for Surgical Site Infection, DI for Postoperative Pain, [facility] Post Discharge Instructions - Follow up Plan Follow up with: Salma Valdivia MD [Primary Care Provider] - Disposition: Home, Self-[facility] Medications: Home Medications Medication Instructions Recorded Confirmed Type 1 tab PO DAILY 01/27/19 09/06/19 History vitamin,calcium,rcecvtum-tciw-kttns acid tablet Ketorolac Tromethamine [Toradol 10 mg PO Q6 #30 tab 09/08/19 Rx 10mg tablet] Oxycodone HCl [OxyIR 5mg tablet] 5 mg PO Q6HP PRN #30 tablet 09/08/19 Rx Prescriptions/Medication Reconciliation: New Oxycodone HCl [OxyIR 5mg tablet] 5 mg PO Q6HP PRN #30 tablet PRN Reason: Moderate To Severe Pain Ketorolac Tromethamine [Toradol 10mg tablet] 10 mg PO Q6 #30 tab Continued vitamin,calcium,jvveopvg-bjfh-hkofg acid tablet 1 tab PO DAILY - Problem Reconciliation Problems Reviewed?: Yes
[2019-09-08 17:08] VITALS: BP 109/68
== END 2019-09-08 18:02 | disposition home or self-care (01) | DRG 788 ==
LOC: OB 15:32
PROVIDERS: ADMIT Obstetrics & Gynecology; ATTEND Obstetrics & Gynecology
CPT/HCPCS: C1758

== ENCOUNTER → 2019-12-20 14:01 | Outpatient (CLI) | payer OTHER, SELFPAY ==
[2019-12-20 15:26] LABS: HCG,Quantitative 424 mIU/mL
== END ==
PROVIDERS: Obstetrics & Gynecology; Visit Provider Obstetrics & Gynecology
DX: Z34.90 Encounter for supervision of normal pregnancy, unspecified, unspecified trimester (principal)
CPT/HCPCS: 36415; 84702

== ENCOUNTER → 2019-12-22 13:45 | Outpatient (CLI) | payer OTHER, SELFPAY ==
[2019-12-22 15:41] LABS: HCG,Quantitative 702 mIU/mL (0-2)
== END ==
PROVIDERS: Visit Provider Obstetrics & Gynecology
DX: Z32.00 Encounter for pregnancy test, result unknown (principal)
CPT/HCPCS: 36415; 84702

== ENCOUNTER → 2020-01-03 13:46 | Outpatient (CLI) | payer OTHER, SELFPAY ==
[2020-01-03 15:59] LABS: HCG,Quantitative 3684 mIU/ml (0-5.42)
== END ==
PROVIDERS: Visit Provider Obstetrics & Gynecology
DX: Z34.90 Encounter for supervision of normal pregnancy, unspecified, unspecified trimester (principal)
CPT/HCPCS: 36415; 84702

== ENCOUNTER → 2020-01-11 13:39 | Outpatient (CLI) | payer OTHER, SELFPAY ==
[2020-01-11 15:58] LABS: HCG,Quantitative 4889 mIU/ml (0-5.42)
== END ==
PROVIDERS: Visit Provider Obstetrics & Gynecology
DX: Z34.90 Encounter for supervision of normal pregnancy, unspecified, unspecified trimester (principal)
CPT/HCPCS: 36415; 84702

== ENCOUNTER → 2020-01-14 11:57 | Outpatient (CLI) | payer OTHER, SELFPAY ==
[2020-01-14 14:51] LABS: Chloride 103 mmol/L (98-107); Potassium 3.7 mmoL/L (3.5-5.1); Sodium 138 mmol/L (136-145)
[2020-01-14 14:53] LABS: Alanine Aminotransferase 18 U/L (12-78); Alkaline Phosphatase 85 U/L (38-126); Anion Gap 15.7 mEq/L (5-15); Aspartate Amino Transferase 22 U/L (14-36); Blood Urea Nitrogen 8 mg/dl (7-17); Carbon Dioxide 23 mmol/L (22.0-30.0); Estimated Glomerular Filt Rate 121 ml/min (>60); GFR (African American) 146 ML/MIN (>60)
[2020-01-14 14:54] LABS: Albumin/Globulin Ratio 1.7 (1.1-1.8); Calcium 9.2 mg/dl (8.4-10.2); Globulin 2.4 g/dL (1.3-3.2); Glucose 91 mg/dl (74-100); Total Protein,Serum 6.4 g/dl (6.3-8.2)
[2020-01-14 14:56] LABS: Bilirubin,Total < 0.1 mg/dl (0.2-1.3)
[2020-01-14 15:09] LABS: HCG,Quantitative 4076 mIU/ml (0-5.42)
== END ==
PROVIDERS: Visit Provider Obstetrics & Gynecology
DX: Z34.90 Encounter for supervision of normal pregnancy, unspecified, unspecified trimester (principal); E87.6 Hypokalemia
CPT/HCPCS: 80053; 84702

== ENCOUNTER → 2020-08-16 13:13 | Outpatient (CLI) | payer OTHER, SELFPAY ==
[2020-08-16 13:19] LABS: Microscopic, Urine URINE MICROSCOPIC (MICROSCOPIC)
[2020-08-16 13:59] LABS: Basophils % 0.2 % (0.1-2.0); Eosinophils # 0.1 K/mm3 (0.0-0.4); Eosinophils % 1.2 % (0.1-12.0); Hematocrit 38.3 % (37.0-47.0); Lymphocytes # 2.7 K/mm3 (0.7-4.5); Lymphocytes % 30.5 % (10-50); Mean Corpuscular HGB Conc 31.3 g/dL (31.8-35.4); Mean Corpuscular Hemoglobin 26.7 pg (27.0-31.2); Mean Corpuscular Volume 85.2 fl (81-99); Mean Platelet Volume 7.9 fl (7.4-10.4); Monocytes # 0.4 K/mm3 (0.1-1.0); Monocytes % 4.7 % (1.7-9.3); Neutrophils # 5.6 K/mm3 (1.8-7.8); Neutrophils % 63.4 % (37.0-80.0); Platelet Count 287 K/mm3 (142-424); Red Cell Distribution Width 13.5 % (11.5-17.5); White Blood Count 8.8 K/mm3 (4.8-10.8)
[2020-08-16 14:15] LABS: Appearance,Urine CLEAR (Clear); Bilirubin,Urine Negative (Negative); Blood, Urine Negative (Negative); Color,Urine YELLOW (Yellow); Glucose,Urine (UA) Negative (Negative); Ketones,Urine Negative (Negative); Leukocyte Esterase,Urine Negative (Negative); Nitrate,Urine Negative (Negative); Protein,Urine Negative (Negative); Specific Gravity, Urine >= 1.030 (1.005-1.030); Urobilinogen,Urine 0.2 EU/dl (0.2)
[2020-08-16 14:21] LABS: Chloride 103 mmol/L (98-107); Potassium 3.8 mmoL/L (3.5-5.1); Sodium 139 mmol/L (136-145)
[2020-08-16 14:24] LABS: Anion Gap 14.8 mEq/L (5-15); Blood Urea Nitrogen 8 mg/dl (7-17); Carbon Dioxide 25 mmol/L (22.0-30.0); Estimated Glomerular Filt Rate 100 ml/min (>60); GFR (African American) 121 ML/MIN (>60)
[2020-08-16 14:25] LABS: Calcium 9.2 mg/dl (8.4-10.2); Glucose 94 mg/dl (74-100)
[2020-08-16 14:32] LABS: Bacteria,Urine 2+ /lpf
[2020-08-16 15:02] LABS: Coronavirus 19 IgG Antibody Positive (Negative); Coronavirus 19 IgM Antibody Negative (Negative)
== END ==
PROVIDERS: Visit Provider Surgery
DX: Z01.89 Encounter for other specified special examinations (principal); K46.9 Unspecified abdominal hernia without obstruction or gangrene; U07.1 COVID-19
CPT/HCPCS: 36415; 80048; 81001; 85025; 86328; 87086

== ENCOUNTER 2020-08-18 07:21 | Day surgery (SDC) | payer OTHER, SELFPAY ==
[2020-08-16 14:20] VITALS: BMI 37.3
[2020-08-18] VITALS (13 sets, daily range): BP systolic 107–139; BP diastolic 67–85; PULSE 74–95; RESP 14–20; TEMP 36.1–43; O2SAT 92–98
[2020-08-18 07:18] LABS: HCG Qualitative, Serum Negative (Negative)
--- NOTE | 2020-08-18 09:40 | P.PN_ITS ---
[facility] Anesthesia Checklist - Patient Identification Patient Identification: Arm Band, Verbal (Name & ) - Structural Data Admitted From: Home Planned Operative Procedure/s: Laparoscopic umbilical hernia repair Consent for Planned Operative Procedure(s) Verified: Yes Verified Documents: Surgical Consent, History and Physical - NPO Status Verified Time NPO: 23:00 - Chart Verification Results Verified: CBC, BMP, HCG - Additional verifications Patient : No Anesthesia Reactions: No Hx Blood Transfusions: No Blood Transfusion Reaction: No - Airway Assessment C-Spine Mobility Assessed: Yes (MP 2, TMD 3, Full neck ROM) TMJ Mobility Assessed: Yes Dentition: Good Dentition - Neurological Assessment Level of Consciousness: Awake, Alert, Appropriate, Follows Commands Hx Seizures: No Numbness or tingling in extremities: No - Anesthesia Plan Anesthesia Risk discussed: Yes Anesthesia Plan: Verified ASA Class: III Anesthesia Type: General [facility] History I have reviewed the patient's past medical history: Yes Medical History: Reports:: Anxiety, Asthma, Hyperlipidemia Denies:: Cancer, Diabetes Mellitus Type 1, Diabetes Mellitus Type 2, Internal Pacemaker, MRSA, Seizures *Have you ever received a pneumonia vaccine?: No *Have you received a flu vaccine this season?: No Other Medical History: Reports: Other. Denies: Blood Transfusion Reaction Comment:: obesity Anesthesia experience/problems:: No prior complications Laterality Cases: Bilateral: Tonsillectomy Other Surgeries: Yes: . No: Pacemaker Amputation: No Fractures: Yes - *Social History Last grade of school completed: High school graduate Smoking Status: Never smoker Alcohol Intake: never Alcohol Intake Frequency:: holidays/special occasions only Substance Use Type: denies use *Occupational Status:: employed Housing: house Household Members: spouse *Travel in the last 8 weeks: None - Psychiatric History Pschychiatric History:: Reports:: Anxiety, Depression Family Hx:: Cancer, Diabetes, Heart Attack, Hypertension, Hyperlipidemia, Thyroid Disorder, Asthma FIRE BOSS history: No FIRE BOSS history
--- NOTE | 2020-08-18 10:18 | P.OP_ITS ---
Date of procedure: 08/18/20 Pre-op Diagnosis:: Supraumbilical hernia Post-op Diagnosis:: Supraumbilical hernia with incarcerated preperitoneal fat Procedure performed:: Laparoscopic-assisted open repair of incarcerated supraumbilical hernia Surgeon:: Kush Archer MD HISTORIC CLOTHING AND COSTUME MAKER:: Manuel Herrera Anesthesia: GETA Estimated blood loss (mL): 10 Operative findings:: 1 cm defect 5 cm lobulation of incarcerated preperitoneal fat Primary repair with 0 Ethibond (no mesh utilized) Operative note:: After informed consent was obtained the patient was taken to the operating room and placed in the supine position. General anesthesia was induced and her abdomen was prepped and draped in a sterile fashion. After infiltration of local anesthetic a Veress needle was placed through a small stab incision in the left upper quadrant. The abdomen was insufflated. A 5 mm optical trocar was placed along the left mid flank and an additional 5 mm trocar was placed at the Veress needle insertion site. Inspection of the intra-abdominal contents revealed no sign of obvious injury. The hernia was not easily visualized but could be palpated in the supraumbilical region. The decision was made to proceed with an incision directly over the palpable hernia. After infiltration local anesthetic a longitudinal incision was made above the umbilicus with scalpel. The deep subcutaneous tissue was dissected with a combination of blunt dissection and electrocautery. A 5 cm lobulation of incarcerated preperitoneal fat was dissected free from surrounding tissue and transected. A 1 cm defect was then noted. The decision was made to proceed with a primary repair secondary to the size/nature of the defect. 0 Ethibond was placed in an in terrupted fashion to reapproximate the fascia. The trocars were removed after release of pneumoperitoneum. All wounds were irrigated and skin was closed with 4-0 Monocryl in a subcuticular fashion. Steri-Strips were applied. The patient's anesthetic agents were reversed and she was extubated prior to transfer to recovery. Condition: stable Disposition: PACU Specimens:: None Complications:: No immediate
--- NOTE | 2020-08-18 10:31 | P.PN_ITS ---
[facility] Anesthesia Record Part I Intake, IV Amount: 900 Estimated blood loss (mL): 20 Urine output (mL): 450 Blood Products used (#): none Blood Pressure: 139/85 SaO2: 95 Pulse Rate: 83 Respiratory Rate: 14 Temperature: 98.0 F Patient is:: Awake, Drowsy, Stable Stable to PACU at:: 10:26
[2020-08-18 13:39] LABS: Microscopic,Cath URINE MICROSCOPIC (MICROSCOPIC)
[2020-08-18 13:40] LABS: Appearance,Urine/Cath CLEAR (Clear); Bilirubin,Cath Negative (Negative); Blood, Urine/Cath Negative (Negative); Color,Urine/Cath YELLOW (Yellow); Glucose,Urine/Cath (UA) Negative (Negative); Ketones,Urine/Cath Negative (Negative); Leukocyte Esterase,Cath Negative (Negative); Nitrate,Cath Negative (Negative); PH,Urine/Cath 7.5 (5.0-8.5); Protein,Urine/Cath Negative (Negative); Specific Gravity, Urine/Cath 1.015 (1.005-1.030); Urobilinogen,Cath 0.2 EU/dl (0.2)
--- NOTE | 2020-08-18 14:17 | P.PN_ITS ---
[facility] Anesthesia Record Part II Discharge Time: 10:56 Destination: Surgical Day Care (OP Surgery) PACU nurse assessment reviewed?: Yes Patient Condition:: Good Anesthesia Complications:: None Swallowing reflex intact?: Yes Cyanosis?: No Blood Pressure: 128/74 Pulse Rate: 74 Temperature: 98.0 F Mental Status: Alert & Oriented Pain level:: 4 Nausea and/or vomitting:: None Intake, IV Amount: 0
== END 2020-08-18 12:30 | disposition home or self-care (01) ==
LOC: OR 07:23
PROVIDERS: PCP Nurse Practitioner Family; Visit Provider Surgery
PROC: 0WQF4ZZ Repair Abdominal Wall, Percutaneous Endoscopic Approach (ICD-10-PCS; CPT 49561; principal; 2020-08-18 09:00)
DX: K43.9 Ventral hernia without obstruction or gangrene (principal); E78.5 Hyperlipidemia, unspecified; J45.909 Unspecified asthma, uncomplicated; F41.9 Anxiety disorder, unspecified; E66.9 Obesity, unspecified; Z68.37 Body mass index [BMI] 37.0-37.9, adult; Z90.89 Acquired absence of other organs; Z83.3 Family history of diabetes mellitus; Z82.49 Family history of ischemic heart disease and other diseases of the circulatory system; Z83.438 Family history of other disorder of lipoprotein metabolism and other lipidemia; Z80.9 Family history of malignant neoplasm, unspecified
CPT/HCPCS: 49561; 81001; 84703; 96374; J2405; J2710

== ENCOUNTER 2020-08-26 16:33 | Emergency (ER) | payer OTHER, SELFPAY ==
[2020-08-26 16:52] VITALS: PULSE 74; RESP 19; TEMP 36.8; O2SAT 98; BMI 35.9
--- NOTE | 2020-08-26 17:05 | HMH.EDUTC ---
[facility] [place] Disposition Clinical Impression: Low back pain Qualifiers: Chronicity: unspecified Back pain laterality: right Sciatica presence: with sciatica Sciatica laterality: sciatica of right side Qualified Code(s): M54.41 - Lumbago with sciatica, right side Disposition: Home, Self-Care Condition on Discharge: Good Instructions: Low Back Pain, DI for Low Back Pain, DI for Sciatica, DI for Back Pain With Sciatica, Cyclobenzaprine Additional Instructions: *Ibuprofen abdirahman 6 hours with meal as needed for pain/inflammation if your doctor has told you that you can take it if not over the counter Tylenol *Ice 20 minutes every 2 hours for the first 48 hours after the initial injury followed by moist heat every 20 minutes 3-4 times a day to affected area *Muscle relaxer every 8 hours as needed for muscle spasms but remember, it WILL cause drowsiness You cannot take it and drive, operate machinery or care for small children. *Keep this area active, no movement leads to more stiffness, However take it easy and avoid heavy lifting pushing or pulling *Follow up with you family doctor if no improvement for further treatment' Return if needed Straight to ER if any life threatening symptoms Prescriptions: Cyclobenzaprine HCl [Flexeril 10mg tablet] 10 mg PO TID PRN #15 tab PRN Reason: Muscle Spasm Transmission Status: Pending to [facility][id number] Referrals: Vani Geiger APRN [Primary Care Provider] - As needed Time of Disposition: 17:32 Medical Decision Making - Raman Inquiry Pt receiving controlled substance: No Raman was queried for this patient: No Vital Signs: 08/26/20 16:52 Temperature 98.2 F Temperature Source Oral Pulse Rate [Radial] 74 Respiratory Rate 19 02 Sat by Pulse Oximetry 98 Oxygen Delivery Method Room Air Orders (Tests/Meds): ED MEDICATIONS Discontinued Medications Generic Name Dose Route Start Last Admin Trade Name Freq PRN Reason Stop Dose Admin Methylprednisolone Sodium Succinate 125 mg 08/26/20 17:22 Methylprednisolone Sod Succ 125mg Vial IM 08/26/20 17:23 ONCE ONE Medical Decision Narrative: Upon discussing treatment noticed patient advised that she under the care of Dr Archer, advised that she had umbilical hernia repair done about a week ago but denies pain or any complication associated with the repair. States that she has a history of sciatica and feels like it did when she had it before Denies and denies any complication since surgery Due to recently surgery discussed with patient and do not recommend any Ibuprofen for pain that she can take over the counter Tylenol for pain [facility] [place] HPI - General Stated complaint: lower back pain Time Seen by Provider: 08/26/20 17:05 Mode of Arrival: Ambulatory Source of Information: Patient Limitations: No Limitations Description of Symptoms (Recalled from Triage Doc. by RN): back pain since last night. lower right sided back pain and down her leg HEENT Symptoms (Recalled from RN notes): No Resp Symptoms (Recalled from RN notes): No Skin Symptoms (Recalled from RN notes): No MS Symptoms (Recalled from RN notes): Yes Functional Status (Recalled from RN notes): wnl - History of Present Illness Provider Complaint: Patient states that she bent over last night picking up some toys and she felt something in her lower back pull States that she started having spasm like pain in her lower back that has since moved into her right buttock area States that she has a history of sciatica and it feels like it does when she has it Denies loss of control of bowel or bladder and denies chance of - Related Data Home Medications Medication Instructions Recorded Confirmed norgestimate-ethinyl estradioL 1 tab PO DAILY 08/16/20 08/18/20 [Previfem Tablet] Previous Rx's Medication Instructions Recorded Hydrocod/Acet 5/325 mg [[place] 1 - 2 tab PO Q6HP PRN #17 tab 08/18/20 5/325mg tablet] Cyclobenzaprine HCl [Fle
[2020-08-26 17:46] VITALS: BP 123/70; PULSE 74; RESP 19; TEMP 36.8; O2SAT 98
== END 2020-08-26 17:47 | disposition home or self-care (01) ==
PROVIDERS: Emergency Provider Nurse Practitioner; PCP Nurse Practitioner Family
DX: M54.41 Lumbago with sciatica, right side (principal); Z88.2 Allergy status to sulfonamides; F41.8 Other specified anxiety disorders; E78.5 Hyperlipidemia, unspecified
CPT/HCPCS: 96372; 99201

== ENCOUNTER 2021-06-13 19:25 | Emergency (ER) | payer OTHER, SELFPAY ==
[2021-06-13 19:26] VITALS: BP 126/79; PULSE 100; RESP 18; TEMP 36.6; O2SAT 100; BMI 33.0
--- NOTE | 2021-06-13 20:33 | HMH.EDUTC ---
[facility] [place] Disposition Clinical Impression: Viral syndrome, Exposure to COVID-19 virus Otitis media Qualifiers: Otitis media type: suppurative Chronicity: acute Laterality: bilateral Recurrence: non-recurrent Spontaneous tympanic membrane rupture: without spontaneous rupture Qualified Code(s): H66.003 - Acute suppurative otitis media without spontaneous rupture of ear drum, bilateral Disposition: Home, Self-Care Condition on Discharge: Good Instructions: DI for Viral Syndrome, Preventing the Spread of Coronavirus Discharge Instructions Additional Instructions: Drink plenty of fluids. Take tylenol or ibuprofen for pain or fever. Take the medications as directed. Follow up with your regular doctor. GO TO THE ER FOR ANY WORSENING SYMPTOMS Prescriptions: Meclizine HCl [Antivert 25mg tablet] 25 mg PO Q6HP PRN #30 tab PRN Reason: Vertigo Transmission Status: Received by [facility] #[id number] Brompheniramine/Pseudoephed/Dm [Bromfed Dm Cough Syrup] 5 ml PO Q6HP PRN #240 syrup PRN Reason: Cough Transmission Status: Received by [facility] #[id number] Azithromycin [Z-Eduardo 250mg Tab*] 250 mg PO UD DOSE PK #6 tab Transmission Status: Received by [facility] #[id number] Referrals: Rhona Merritt MD [Primary Care Provider] - Forms: Work/School Release Time of Disposition: 20:42 Medical Decision Making - Medical Records Medical records reviewed: No: I reviewed the patient's medical records. - Raman Inquiry Pt receiving controlled substance: No Vital Signs: 06/13/21 19:26 06/13/21 21:04 Temperature 97.8 F 97.8 F Temperature Source Oral Pulse Rate 100 H Pulse Rate [Left Radial] 100 H Respiratory Rate 18 18 Blood Pressure 126/79 Blood Pressure [Right Arm] 126/79 Blood Pressure Mean [Right Arm] 94 Blood Pressure Source [Right Arm] Automatic Cuff Blood Pressure Position [Right Arm] Sitting 02 Sat by Pulse Oximetry 100 Oxygen Delivery Method Room Air [facility] [place] HPI - General Stated complaint: Dizzy vomiting Time Seen by Provider: 06/13/21 20:33 Mode of Arrival: Ambulatory Source of Information: Patient Limitations: No Limitations Description of Symptoms (Recalled from Triage Doc. by RN): c/o dizzy, nausea, faint feeling and puking since yesterday HEENT Symptoms (Recalled from RN notes): Yes Resp Symptoms (Recalled from RN notes): No Skin Symptoms (Recalled from RN notes): No MS Symptoms (Recalled from RN notes): No Functional Status (Recalled from RN notes): wnl - History of Present Illness Provider Complaint: She states that since yesterday she has had nausea, bilateral ear pain, a scratchy sore throat for the past 2 days. She denies any fever/chills/body aches. - Related Data Home Medications Medication Instructions Recorded Confirmed norgestimate-ethinyl estradioL 1 tab PO DAILY 08/16/20 08/30/20 [Previfem Tablet] Previous Rx's Medication Instructions Recorded Hydrocod/Acet 5/325 mg [[place] 1 - 2 tab PO Q6HP PRN #17 tab 08/18/20 5/325mg tablet] Cyclobenzaprine HCl [Flexeril 10mg 10 mg PO TID PRN #15 tab 08/26/20 tablet] Azithromycin [Z-Eduardo 250mg Tab*] 250 mg PO UD DOSE PK #6 tab 06/13/21 Brompheniramine/Pseudoephed/Dm 5 ml PO Q6HP PRN #240 syrup 06/13/21 [Bromfed Dm Cough Syrup] Meclizine HCl [Antivert 25mg 25 mg PO Q6HP PRN #30 tab 06/13/21 tablet] Allergies Allergy/AdvReac Type Severity Reaction Status Date / Time nitrofurantoin Allergy Intermediate Verified 08/30/20 13:23 [From Macrobid] - Worker's Comp Is this a Worker's Comp case?: No [facility] History - Hepatitis A Screen Drug use history?: No High risk sexual behaviors?: No History of sexually transmitted infection?: No Currently employed?: No Childcare worker?: No Do you have indoor plumbing?: Yes Do you have electricity?: Yes Attestation statement:: This patient has been screened for Hepatitis A risk factors. I have reviewed the patient's past medical histor
[2021-06-13 21:04] VITALS: BP 126/79; PULSE 100; RESP 18; TEMP 36.6; O2SAT 100
--- NOTE | 2021-06-13 21:05 | PC.NURSE ---
PROVIDER SUGGEST PT BE SWABBED FOR COVID BUT PT REFUSED
== END 2021-06-13 21:05 | disposition home or self-care (01) ==
PROVIDERS: Emergency Provider Nurse Practitioner Family; PCP Nurse Practitioner
DX: H66.003 Acute suppurative otitis media without spontaneous rupture of ear drum, bilateral (principal); B34.9 Viral infection, unspecified; F41.8 Other specified anxiety disorders
CPT/HCPCS: 99202; G0463

== ENCOUNTER 2021-10-14 11:02 | Emergency (ER) | payer OTHER, SELFPAY ==
--- NOTE | 2021-10-14 11:31 | XR_ITS ---
PROCEDURE INFORMATION: Exam: XR Right Ankle Exam date and time: 10/14/2021 11:31 AM Age: 26 years old Clinical indication: Injury or trauma; Fall; Sprain or strain and swelling (edema); Ankle; Right; Injury date: 10/13/21 TECHNIQUE: Imaging protocol: XR Right ankle. Views: 3 or more views. COMPARISON: CR XR FOOT RT MIN 3V 10/14/2021 11:55 AM FINDINGS: Bones/joints: No acute bony injury or malalignment in the right ankle. Soft tissues: Soft tissue swelling. IMPRESSION: No acute bony injury or malalignment in the right ankle.
--- NOTE | 2021-10-14 11:31 | XR_ITS ---
PROCEDURE INFORMATION: Exam: XR Right Foot Exam date and time: 10/14/2021 11:31 AM Age: 26 years old Clinical indication: Injury or trauma; Fall; Sprain or strain and swelling (edema); Ankle; Right; Injury date: 10/13/21 TECHNIQUE: Imaging protocol: XR Right foot. Views: 3 or more views. COMPARISON: No relevant prior studies available. FINDINGS: Bones/joints: No acute bony injury or malalignment in the visualized right foot. Soft tissues: No radiopaque foreign body. IMPRESSION: No acute bony injury or malalignment in the visualized right foot.
[2021-10-14 12:18] VITALS: BP 113/79; PULSE 75; RESP 19; TEMP 37.2; O2SAT 98; BMI 33.0
--- NOTE | 2021-10-14 12:45 | HMH.EDUTC ---
[facility] [place] Clinical Impression: Right foot pain Right ankle sprain Qualifiers: Encounter type: initial encounter Involved ligament of ankle: unspecified ligament Qualified Code(s): S93.401A - Sprain of unspecified ligament of right ankle, initial encounter Disposition: Home, Self-Care Condition on Discharge: Good Instructions: How to Use Crutches, Ankle Sprain, DI for Ankle Sprain, How to Take Care of Your Splint Additional Instructions: Rest the extremity, apply ice for 15 minutes as tolerated three or four times per day, Elevate the extremity as tolerated while you are resting. Take ibuprofen for pain. I sent in a prescription to your pharmacy. Follow up with Dr. Harrison (orthopedics). Sometimes there can be fractures that don't show up well on the first set of x-rays. So, you should follow up if you continue to have symptoms. I put in a referral but you need to call his office and schedule an appointment. Follow up with your regular doctor. GO TO THE ER FOR ANY WORSENING SYMPTOMS Prescriptions: Ibuprofen [Ibuprofen 800mg Tablet] 800 mg PO Q8HP PRN #30 tab PRN Reason: Moderate Pain Transmission Status: Received by [facility] Referrals: Rhona Merritt MD [Primary Care Provider] - Sepideh Mccarty DPM [Staff Physician] - Forms: Work/School Release Time of Disposition: 13:15 Medical Decision Making - Medical Records Medical records reviewed: No: I reviewed the patient's medical records. - Raman Inquiry Pt receiving controlled substance: No Vital Signs: 10/14/21 12:18 10/14/21 13:14 Temperature 98.9 F 98.9 F Temperature Source Oral Pulse Rate 75 Pulse Rate [Left] 75 Respiratory Rate 19 19 Blood Pressure 113/79 Blood Pressure [Right Arm] 113/79 Blood Pressure Mean [Right Arm] 90 02 Sat by Pulse Oximetry 98 - Radiology Data #1 Image(s): Ankle Image Reviewed: Yes I reviewed the patient's radiology image, Yes I have reviewed radiologist's interpretation Preliminary Findings: No Fracture Seen PROCEDURE INFORMATION: Exam: XR Right Ankle Exam date and time: 10/14/2021 11:31 AM Age: 26 years old Clinical indication: Injury or trauma; Fall; Sprain or strain and swelling (edema); Ankle; Right; Injury date: 10/13/21 TECHNIQUE: Imaging protocol: XR Right ankle. Views: 3 or more views. COMPARISON: CR XR FOOT RT MIN 3V 10/14/2021 11:55 AM FINDINGS: Bones/joints: No acute bony injury or malalignment in the right ankle. Soft tissues: Soft tissue swelling. IMPRESSION: No acute bony injury or malalignment in the right ankle. #2 Image(s): Foot/Toes Image Reviewed: Yes I reviewed the patient's radiology image, Yes I have reviewed radiologist's interpretation Preliminary Findings: Normal/NAD, No Fracture Seen PROCEDURE INFORMATION: Exam: XR Right Foot Exam date and time: 10/14/2021 11:31 AM Age: 26 years old Clinical indication: Injury or trauma; Fall; Sprain or strain and swelling (edema); Ankle; Right; Injury date: 10/13/21 TECHNIQUE: Imaging protocol: XR Right foot. Views: 3 or more views. COMPARISON: No relevant prior studies available. FINDINGS: Bones/joints: No acute bony injury or malalignment in the visualized right foot. Soft tissues: No radiopaque foreign body. IMPRESSION: No acute bony injury or malalignment in the visualized right foot. [facility] [place] - General Stated complaint: rt ankle pain ao 10/13/21 Time Seen by Provider: 10/14/21 12:45 Mode of Arrival: Ambulatory Source of Information: Patient Limitations: No Limitations Description of Symptoms (Recalled from Triage Doc. by RN): pt fell off a ladder low to the ground attemping to get in a bounce house. pt states she thinks she sprained her R ankle. pt c/o of R ankle pain and swelling. occurance on 10/13 HEENT Sym
[2021-10-14 13:14] VITALS: BP 113/79; PULSE 75; RESP 19; TEMP 37.2
== END 2021-10-14 13:32 | disposition home or self-care (01) ==
PROVIDERS: Emergency Provider Nurse Practitioner Family; PCP Nurse Practitioner
DX: S93.401A Sprain of unspecified ligament of right ankle, initial encounter (principal); W11.XXXA Fall on and from ladder, initial encounter; Y92.89 Other specified places as the place of occurrence of the external cause; F41.8 Other specified anxiety disorders; E78.5 Hyperlipidemia, unspecified; J45.909 Unspecified asthma, uncomplicated
CPT/HCPCS: 29515; 73610; 73630; 99202; G0463

== ENCOUNTER → 2021-12-10 15:52 | Outpatient (CLI) | payer OTHER, SELFPAY ==
[2021-12-10 16:25] LABS: Basophils # 0.1 K/mm3 (0-0.2); Basophils % 0.4 % (0.1-2.0); Eosinophils # 0.1 K/mm3 (0.0-0.4); Eosinophils % 0.9 % (0.1-12.0); Hematocrit 37.6 % (37.0-47.0); Hemoglobin 12.2 g/dL (12.2-16.2); Lymphocytes # 2.9 K/mm3 (0.7-4.5); Lymphocytes % 23.3 % (10-50); Mean Corpuscular HGB Conc 32.4 g/dL (31.8-35.4); Mean Corpuscular Hemoglobin 28.4 pg (27.0-31.2); Mean Corpuscular Volume 87.8 fl (81-99); Mean Platelet Volume 8.3 fl (7.4-10.4); Monocytes # 0.4 K/mm3 (0.1-1.0); Neutrophils # 8.9 K/mm3 (1.8-7.8); Neutrophils % 72.3 % (37.0-80.0); Platelet Count 268 K/mm3 (142-424); Red Blood Count 4.29 M/mm3 (4.20-5.40); Red Cell Distribution Width 12.9 % (11.5-17.5); White Blood Count 12.4 K/mm3 (4.8-10.8)
[2021-12-12 07:13] LABS: Rubella Antibodies, IgG 1.65 index (Immune >0.99)
[2021-12-12 08:17] LABS: Hepatitis B Surface Antigen Negative (Negative); Hepatitis C Antibody <0.1 s/co ratio (0.0-0.9)
[2021-12-12 10:12] LABS: Rapid Plasma Reagin Ab Titer Non Reactive (NonRea<1:1)
[2021-12-12 11:11] LABS: HIV Screen 4th Generation wRfx Non Reactive (Non Reactive)
== END ==
PROVIDERS: PCP Nurse Practitioner; Visit Provider Obstetrics & Gynecology
DX: Z34.90 Encounter for supervision of normal pregnancy, unspecified, unspecified trimester (principal)
CPT/HCPCS: 36415; 85025; 86592; 86703; 86762; 86850; 87340; 87380; G0432

== ENCOUNTER → 2022-02-04 14:26 | Outpatient (CLI) | payer OTHER, SELFPAY ==
--- NOTE | 2022-02-04 14:26 | US_ITS ---
FINAL REPORT CLINICAL HISTORY: anatomy scan, OB complete FINDINGS: There is a single live intrauterine gestation. Presentation is cephalic. The cervix is closed and measures 3.8 cm. Placenta is anterior, grade 1. movement is noted. Heart rate is measured at 152 beats per min Three-vessel cord with satisfactory umbilical cord insertion. Four-chamber heart is noted. brain and ventricles are unremarkable. Chest and diaphragm are unremarkable. ABDOMEN: Both kidneys are unremarkable. Stomach is unremarkable. SPINE: No anomalies identified. Both arms and legs noted. AMNIOTIC FLUID: Appropriate amount. MEASUREMENTS: ULTRASOUND AGE: 20 weeks 0 days. GESTATION AGE: 20 weeks 0 days. ESTIMATED WEIGHT: 351 g GROWTH PERCENTILE: 69 % BPD: 4.5 cm corresponding with 19 weeks 5 days. OFD: 5.7 cm corresponding with 19 weeks 6 days. HC: 16.2 cm corresponding with 19 weeks 0 days. AC: 15.2 cm corresponding with 20 weeks 3 days. FL: 3.4 cm corresponding with 20 weeks 6 days. CEREBELLUM: 2 cm corresponding with 20 weeks 4 days. HUMERUS: 3.2 cm corresponding with 20 weeks 5 days. HC/AC: 1.07 CI: 79% FL/BPD: 76% FL/AC: 23% IMPRESSION: Single living IUP with an ultrasound age of 20 weeks 0 days. Reviewed, Interpreted and Dictated by Donald Yeung III, MD Transcribed by Jennifer Flanagan Authenticated by Donald Yeung III, MD on 02/04/2022 04:01:52 PM [facility]
== END ==
PROVIDERS: PCP Nurse Practitioner; Visit Provider Obstetrics & Gynecology
DX: Z34.90 Encounter for supervision of normal pregnancy, unspecified, unspecified trimester (principal)
CPT/HCPCS: 76805

== ENCOUNTER 2022-03-26 07:35 | Outpatient (CLI) | payer OTHER, SELFPAY ==
[2022-03-26 08:02] LABS: Basophils # 0.1 K/mm3 (0-0.2); Eosinophils # 0.1 K/mm3 (0.0-0.4); Eosinophils % 1.4 % (0.1-12.0); Hematocrit 35.4 % (37.0-47.0); Hemoglobin 11.8 g/dL (12.2-16.2); Lymphocytes # 1.6 K/mm3 (0.7-4.5); Lymphocytes % 17.3 % (10-50); Mean Corpuscular HGB Conc 33.2 g/dL (31.8-35.4); Mean Corpuscular Hemoglobin 29.2 pg (27.0-31.2); Mean Corpuscular Volume 87.8 fl (81-99); Mean Platelet Volume 8.7 fl (7.4-10.4); Monocytes # 0.3 K/mm3 (0.1-1.0); Monocytes % 3.4 % (1.7-9.3); Neutrophils # 7.1 K/mm3 (1.8-7.8); Neutrophils % 76.9 % (37.0-80.0); Platelet Count 269 K/mm3 (142-424); Red Blood Count 4.03 M/mm3 (4.20-5.40); Red Cell Distribution Width 14.1 % (11.5-17.5); White Blood Count 9.2 K/mm3 (4.8-10.8)
[2022-03-26 08:21] LABS: Glucose,Fasting 85 mg/dl (74-100)
[2022-03-26 09:45] VITALS: BP 145/95; PULSE 72; RESP 18; O2SAT 99
[2022-03-26 09:48] VITALS: BP 142/90; PULSE 74
[2022-03-26 10:51] LABS: Glucose 1 Hour 120 mg/dL (74-100)
== END 2022-03-26 09:48 | disposition home or self-care (01) ==
LOC: INF 07:36
PROVIDERS: PCP Nurse Practitioner Family; Visit Provider Obstetrics & Gynecology
DX: Z34.90 Encounter for supervision of normal pregnancy, unspecified, unspecified trimester (principal)
CPT/HCPCS: 36415; 82951; 85025; 96372; J2790

== ENCOUNTER → 2022-05-07 12:44 | Outpatient (CLI) | payer OTHER, SELFPAY ==
--- NOTE | 2022-05-07 12:44 | US_ITS ---
FINAL REPORT CLINICAL HISTORY: Growth and MJ; hypertension; obesity FINDINGS: There is a single live intrauterine gestation. Presentation is breech. Placenta is anterior, high, grade 2. movement is seen. Heart rate is 136 beats per minute. AMNIOTIC FLUID: Appropriate amount. MJ: 11 cm MEASUREMENTS: ULTRASOUND AGE: 32 weeks 5 days. GESTATION AGE: 33 weeks 1 days. ESTIMATED WEIGHT: 2012 g GROWTH PERCENTILE: 26% BPD: 8.1 cm corresponding with 32 weeks 4 4 days. OFD: 10.4 cm corresponding with 32 weeks 4 days. HC: 29.3 cm corresponding with 32 weeks 3 days. AC: 28.7 cm corresponding with 32 weeks 6 days. FL: 6.3 cm corresponding with 32 weeks 5 days. HC/AC: 1.02 CI: 78% FL/BPD: 78% FL/AC: 22% IMPRESSION: Single living IUP with an ultrasound age of 32 weeks 5 days. MJ of 11 cm Reviewed, Interpreted and Dictated by Donald Yeung III, MD Transcribed by Jennifer Flanagan Authenticated and [facility]
== END ==
PROVIDERS: PCP Nurse Practitioner Family; Visit Provider Obstetrics & Gynecology
DX: O36.60X0 Maternal care for excessive fetal growth, unspecified trimester, not applicable or unspecified (principal)
CPT/HCPCS: 76816

== ENCOUNTER → 2022-05-31 13:05 | Outpatient (CLI) | payer OTHER, SELFPAY | PROVIDERS: PCP Nurse Practitioner Family; Visit Provider Obstetrics & Gynecology | DX: Z34.90 Encounter for supervision of normal pregnancy, unspecified, unspecified trimester (principal) | CPT/HCPCS: 86403 ==

== ENCOUNTER → 2022-06-03 13:35 | Outpatient (CLI) | payer OTHER, SELFPAY ==
[2022-06-03 13:58] LABS: Basophils % 0.2 % (0.1-2.0); Eosinophils # 0.1 K/mm3 (0.0-0.4); Eosinophils % 0.8 % (0.1-12.0); Hemoglobin 11.7 g/dL (12.2-16.2); Lymphocytes # 1.3 K/mm3 (0.7-4.5); Mean Corpuscular HGB Conc 34.3 g/dL (31.8-35.4); Mean Corpuscular Hemoglobin 29.4 pg (27.0-31.2); Mean Corpuscular Volume 85.7 fl (81-99); Monocytes # 0.4 K/mm3 (0.1-1.0); Monocytes % 3.8 % (1.7-9.3); Neutrophils # 8.3 K/mm3 (1.8-7.8); Neutrophils % 82.2 % (37.0-80.0); Platelet Count 247 K/mm3 (142-424); Red Blood Count 3.96 M/mm3 (4.20-5.40); Red Cell Distribution Width 13.8 % (11.5-17.5)
[2022-06-03 14:11] LABS: D-Dimer 0.85 ug/mL (0.0-0.5)
[2022-06-03 14:12] LABS: Activated Partial Thrombo Time 25.1 seconds (22.8-30.6); INR 0.93 (0.9-1.1); Prothrombin Time 10.6 seconds (10.1-12.5)
[2022-06-03 14:15] LABS: Chloride 107 mmol/L (98-107); Potassium 3.7 mmoL/L (3.5-5.1); Sodium 136 mmol/L (136-145)
[2022-06-03 14:17] LABS: Blood Urea Nitrogen 4 mg/dl (7-17)
[2022-06-03 14:18] LABS: Alanine Aminotransferase 17 U/L (12-78); Anion Gap 10.7 mEq/L (5-15); Aspartate Amino Transferase 24 U/L (14-36); Calcium 9.2 mg/dl (8.4-10.2); Carbon Dioxide 22 mmol/L (22.0-30.0); Estimated Glomerular Filt Rate 147 ml/min (>60); GFR (African American) 178 ML/MIN (>60); Glucose 112 mg/dl (74-100)
[2022-06-03 14:21] LABS: Uric Acid 3.1 mg/dl (2.5-6.2)
[2022-06-03 14:22] LABS: Fibrinogen 785 mg/dL (229.9-363.5)
== END ==
PROVIDERS: PCP Nurse Practitioner Family; Visit Provider Obstetrics & Gynecology
DX: Z34.90 Encounter for supervision of normal pregnancy, unspecified, unspecified trimester (principal)
CPT/HCPCS: 36415; 80048; 84450; 84460; 84550; 85025; 85378; 85384; 85610; 85730

== ENCOUNTER → 2022-06-06 09:15 | Outpatient (CLI) | payer OTHER, SELFPAY ==
[2022-06-06 11:00] LABS: Total Protein 24 Hour,Urine 325 mg/24 hr (40-90); Total Volume,Urine 2500 mL (600-1600)
[2022-06-06 12:32] LABS: Basophils # 0.1 K/mm3 (0-0.2); Basophils % 0.7 % (0.1-2.0); Eosinophils # 0.1 K/mm3 (0.0-0.4); Eosinophils % 0.9 % (0.1-12.0); Hematocrit 36.7 % (37.0-47.0); Hemoglobin 11.6 g/dL (12.2-16.2); Lymphocytes # 1.6 K/mm3 (0.7-4.5); Lymphocytes % 15.6 % (10-50); Mean Corpuscular HGB Conc 31.5 g/dL (31.8-35.4); Mean Corpuscular Hemoglobin 28.4 pg (27.0-31.2); Mean Corpuscular Volume 90.4 fl (81-99); Monocytes # 0.5 K/mm3 (0.1-1.0); Monocytes % 4.7 % (1.7-9.3); Neutrophils # 7.9 K/mm3 (1.8-7.8); Neutrophils % 78.1 % (37.0-80.0); Platelet Count 241 K/mm3 (142-424); Red Blood Count 4.06 M/mm3 (4.20-5.40); Red Cell Distribution Width 14.2 % (11.5-17.5); White Blood Count 10.1 K/mm3 (4.8-10.8)
[2022-06-06 13:18] LABS: Alanine Aminotransferase 13 U/L (12-78); Albumin Level 3.3 g/dl (3.5-5.0); Albumin/Globulin Ratio 1.2 (1.1-1.8); Alkaline Phosphatase 158 U/L (38-126); Anion Gap 9.8 mEq/L (5-15); Aspartate Amino Transferase 20 U/L (14-36); Blood Urea Nitrogen 7 mg/dl (7-17); Calcium 9.5 mg/dl (8.4-10.2); Carbon Dioxide 23 mmol/L (22.0-30.0); Chloride 106 mmol/L (98-107); Estimated Glomerular Filt Rate 119 ml/min (>60); GFR (African American) 144 ML/MIN (>60); Globulin 2.8 g/dL (1.3-3.2); Glucose 68 mg/dl (74-100); Potassium 3.8 mmoL/L (3.5-5.1); Sodium 135 mmol/L (136-145); Total Protein,Serum 6.1 g/dl (6.3-8.2)
[2022-06-06 13:20] LABS: Bilirubin,Total < 0.1 mg/dl (0.2-1.3)
== END ==
LOC: LAB.DROPOF 10:32 → LAB 10:32
PROVIDERS: Obstetrics & Gynecology; PCP Nurse Practitioner Family; Visit Provider Obstetrics & Gynecology
DX: Z01.812 Encounter for preprocedural laboratory examination (principal); Z20.822 Contact with and (suspected) exposure to COVID-19; O14.93 Unspecified pre-eclampsia, third trimester; Z3A.38 38 weeks gestation of pregnancy
CPT/HCPCS: 36415; 80053; 84155; 85025; C9803; U0003; U0005

== ENCOUNTER 2022-06-07 04:33 | Inpatient (IN) | payer OTHER, SELFPAY ==
[2022-06-07] VITALS (8 sets, daily range): BP systolic 117–133; BP diastolic 70–79; PULSE 102–110; RESP 16–18; TEMP 36.4–36.8; O2SAT 97–100; BMI 41.6
[2022-06-07 05:24] LABS: Coronavirus 19, PCR Not Detected (NotDetected); Influenza A, PCR Not Detected (NotDetected); Influenza B, PCR Not Detected (NotDetected); Microscopic, Urine URINE MICROSCOPIC (MICROSCOPIC)
[2022-06-07 06:00] LABS: Appearance,Urine CLEAR (Clear); Bilirubin,Urine Negative (Negative); Blood, Urine Negative (Negative); Color,Urine YELLOW (Yellow); Glucose,Urine (UA) Negative (Negative); Ketones,Urine 1+ (Negative); Leukocyte Esterase,Urine Negative (Negative); Nitrate,Urine Negative (Negative); PH,Urine 6.5 (5.0-8.5); Protein,Urine Negative (Negative); Specific Gravity, Urine 1.025 (1.005-1.030); Urobilinogen,Urine 0.2 EU/dl (0.2)
[2022-06-07 06:29] LABS: Bacteria,Urine Trace /lpf; Squamous Epithelial Cell,Urine Occasional #/hpf (0-5); WBC,Urine Occasional #/hpf (0-3)
[2022-06-07 06:45] LABS: Barbiturates Screen,Urine Negative ng/ml (<200)
[2022-06-07 06:46] LABS: Amphetamine/Metha Screen,Urine Negative ng/ml (<1000); Benzodiazepines Screen,Urine Negative ng/ml (<200)
[2022-06-07 06:47] LABS: Cannabinoid Screen,Urine Negative ng/ml (<50)
[2022-06-07 06:48] LABS: Cocaine Screen,Urine Negative ng/ml (<300)
[2022-06-07 06:49] LABS: Methadone Screen,Urine Negative ng/ml (<300); Opiate Screen,Urine Negative ng/ml (<300)
[2022-06-07 06:50] LABS: Phencyclidine Screen,Urine Negative ng/ml (<25)
--- NOTE | 2022-06-07 07:07 | HMH.ANESCL ---
[facility] Anesthesia Checklist - Structural Data Admitted From: Inpatient Planned Operative Procedure/s: c/section Consent for Planned Operative Procedure(s) Verified: Yes - Additional verifications Anesthesia Reactions: No Hx Blood Transfusions: No Blood Transfusion Reaction: No - Airway Assessment C-Spine Mobility Assessed: Yes TMJ Mobility Assessed: Yes Dentition: Good Dentition - Neurological Assessment Level of Consciousness: Awake, Alert, Appropriate - Anesthesia Plan Anesthesia Risk discussed: Yes Anesthesia Plan: Verified ASA Class: II Anesthesia Type: Spinal [facility] History I have reviewed the patient's past medical history: Yes Medical History: Reports:: Anxiety, Asthma, Depression, Hyperlipidemia Denies:: Cancer, Diabetes Mellitus Type 1, Diabetes Mellitus Type 2, Internal Pacemaker, MRSA, Seizures *Have you ever received a pneumonia vaccine?: No *Have you received a flu vaccine this season?: No Other Medical History: Reports: Other. Denies: Blood Transfusion Reaction Anesthesia experience/problems:: none Laterality Cases: Bilateral: Tonsillectomy Other Surgeries: Yes: (FAILURE TO PROGRESS), Hernia Repair. No: Pacemaker Amputation: No Fractures: Yes - *Social History Smoking Status: Never smoker Alcohol Intake: never Alcohol Intake Frequency:: holidays/special occasions only Substance Use Type: denies use *Occupational Status:: employed Housing: house Household Members: spouse *Travel in the last 8 weeks: None - Psychiatric History Pschychiatric History:: Reports:: Anxiety, Depression Family Hx:: Cancer, Diabetes, Heart Attack, Hypertension, Hyperlipidemia, Thyroid Disorder, Asthma SPECIALTY DEVELOPMENT CONSULTANT history: No SPECIALTY DEVELOPMENT CONSULTANT history Para: 1
--- NOTE | 2022-06-07 07:21 | HMH.HP ---
*Admission Date: 06/07/22 *Chief complaint: mild preeclampsia *History of present illness: 26 yo 37 3/, Dating by 9 02/14 ultrasound care at [facility]-- Dr. Valdivia Previous CS with G1 (9# 13oz); scheduled delivery at 39 weeks with this Increase in BP over past week, with 24 hr urine protein 345 Serum labs normal Immediate delivery recommended in context of mild preeclampsia Sterilization with tubal ligation requested and consent forms signed in office Rh negative maternal status with Rhogam prophylaxis given 03/27/22 [facility] History I have reviewed the patient's past medical history: Yes Medical History: Reports:: Anxiety, Asthma, Depression, Hyperlipidemia Denies:: Cancer, Diabetes Mellitus Type 1, Diabetes Mellitus Type 2, Internal Pacemaker, MRSA, Seizures *Have you ever received a pneumonia vaccine?: No *Have you received a flu vaccine this season?: No Other Medical History: Reports: Other. Denies: Blood Transfusion Reaction Anesthesia experience/problems:: none Laterality Cases: Bilateral: Tonsillectomy Other Surgeries: Yes: (FAILURE TO PROGRESS), Hernia Repair. No: Pacemaker Amputation: No Fractures: Yes - *Social History Smoking Status: Never smoker Alcohol Intake: never Alcohol Intake Frequency:: holidays/special occasions only Substance Use Type: denies use *Occupational Status:: employed Housing: house Household Members: spouse *Travel in the last 8 weeks: None - Psychiatric History Pschychiatric History:: Reports:: Anxiety, Depression Family Hx:: Cancer, Diabetes, Heart Attack, Hypertension, Hyperlipidemia, Thyroid Disorder, Asthma INSPECTOR WIRE PRODUCTS history: No INSPECTOR WIRE PRODUCTS history Para: 1 Review of Systems - Review of Systems Review of systems:: pertinent systems reviewed and negative unless documented below - *Genitourinary Denies abnormal vaginal bleeding Meds Home Medications Medication Instructions Recorded Confirmed Type ondansetron 4 mg disintegrating 4 mg PO Q4H PRN #30 tab 12/10/21 06/07/22 Rx tablet vit no.95-ferrous 1 tab PO DAILY 12/10/21 06/07/22 History fumarate 28 mg-folic acid 800 mcg tablet albuterol sulfate 90 mcg/actuation 2 inh INHALATION NEEDED PRN g 02/07/22 06/07/22 History aerosol inhaler Allergies Allergy/AdvReac Type Severity Reaction Status Date / Time nitrofurantoin Allergy Intermediate Verified 06/06/22 09:45 [From Macrobid] Exam Vital signs and Labs for Last 24 Hours: Temp Pulse Resp BP Pulse Ox 97.5 F L 102 H 16 124/71 100 06/07/22 10:16 06/07/22 10:16 06/07/22 09:35 06/07/22 10:16 06/07/22 09:35 Laboratory Results - last 24 hr 06/07/22 05:05: Urine Color Yellow, Urine Appearance Clear, Urine pH 6.5, Ur Specific [place] 1.025, Urine Protein Negative, Urine Glucose (UA) Negative, Urine Ketones 1+, Urine Blood Negative, Urine Nitrate Negative, Urine Bilirubin Negative, Urine Urobilinogen 0.2, Ur Leukocyte Esterase Negative, Urine RBC None, Urine WBC Occasional, Ur Squamous Epith Cells Occasional, Urine Bacteria Trace 06/07/22 05:05: Blood Type A Negative, Antibody Screen Negative 06/07/22 05:05: SARS-CoV-2 (PCR) Not detected, Influenza A Untype (PCR) Not detected, Influenza Type B (PCR) Not detected 06/07/22 05:05: Urine Opiates Screen Negative, Urine Methadone Screen Negative, Ur Barbituates Screen Negative, Ur Phencyclidine Scrn Negative, Ur Amphetamines Screen Negative, U Benzodiazepines Scrn Negative, Urine Cocaine Screen Negative, U Marijuana (THC) Screen Negative 06/07/22 07:45: Urine Color Yellow, Urine Appearance Clear, Urine pH 6.5, Ur Specific [place] 1.020, Urine Protein Trace, Urine Glucose (UA) Negative, Urine Ketones 1+, Urine Blood Negative, Urine Nitrate Negative, Urine Bilirubin Negative, Urine Urobilinogen 0.2, Ur Leukocyte Esterase Negative, Urine RBC None, Urine WBC Occasional, Ur Squamous Epith Cells Occasional, Urine Bacteria Trace I & O for Last 24 hours: Intake & Output 07
--- NOTE | 2022-06-07 09:13 | P.PN_ITS ---
[facility] Anesthesia Record Part I Intake, IV Amount: 2,000 Estimated blood loss (mL): 600 Urine output (mL): 100 Blood Pressure: 117/79 SaO2: 100 Pulse Rate: 110 Respiratory Rate: 16 Temperature: 97.6 F Patient is:: Awake, Stable Stable to PACU at:: 09:05
--- NOTE | 2022-06-07 09:31 | HMH.OPNOTE ---
Date of procedure: 06/10/22 Pre-op Diagnosis:: 1. 37 3/7 weeks 2. Mild preeclampsia 3. Previous c section 4. Undesired fertility Post-op Diagnosis:: same Procedure performed:: 1. Low Transverse C Section 2. Bilateral tubal ligation Surgeon:: Salma Valdivia MD Maxillofacial Surgeon(s):: Naomi Russell DO PHOTOVOLTAIC INSTALLATION TECHNICIAN:: Chris Peter Anesthesia: spinal Estimated blood loss (mL): 600 Operative findings:: Vigorous male infant in vertex presentation Apgars 8 (1 min) and 9 (5 min) Weight 7# 14oz Grossly normal uterus, fallopian tubes and ovaries Calcified placenta Operative note:: The patient was taken to the OR and spinal was administered without difficulty. She was prepped and draped in normal sterile fashion. A pfannenstiel skin incision was made with the scalpel and carried down to the fascia. The fascia was incised in the midline and sharply dissected off the rectus muscles. The muscles were in the midline and the peritoneum was entered sharply and extended bluntly. The Parvez-O self retaining retractor was placed in the abdomen and a bladder flap was created. The uterus was incised in the lower uterine segment in a transverse fashion and extended bluntly. Amniotomy was performed and clear fluid noted. The was delivered in controlled fashion, without complication or shoulder dystocia. A single nuchal cord was reduced at time of delivery. The infant was vigorous at and handed to awaiting account review specialist and nursing staff for evaluation after the umbilical cord was clamped and cut. Cord blood was collected and a cord segment was preserved. The placenta was manually extracted and noted to be intact. The uterus was repaired with 0-vicryl in a running/locked fashion. A second layer was placed for hemostasis. The bladder flap was closed with 2-0 vicryl in a running fashion. Filshie clips were applied to both fallopian tubes; complete occlusion of the tubes were noted. The peritoneum was closed with 2-0 vicryl in a running fashion. The fascia was closed with #1 vicryl in a running fashion. The subcutaneous fat was closed with 2-0 monocryl in a running fashion. The skin was closed with 2-0 stratafix in a subcuticular fashion. The patient tolerated the procedure well. Sponge, lap, needle and instrument counts were correct x 2. TAP block placed by anesthesia after conclusion of procedure. She was taken to PACU awake and in stable condition. Condition: stable Disposition: PACU Specimens:: Placenta Complications:: None
--- NOTE | 2022-06-07 09:42 | SUR.PHASEI ---
0910- kimani saucedo at bedside to confirm fundus position. 0934- detailed report called to kimani saucedo at this time.
--- NOTE | 2022-06-07 10:15 | P.PN_ITS ---
[facility] Anesthesia Record Part II Discharge Time: 09:35 Destination: Obstetric PACU nurse assessment reviewed?: Yes Patient Condition:: Good Anesthesia Complications:: None Swallowing reflex intact?: Yes Cyanosis?: No Blood Pressure: 124/71 Pulse Rate: 102 Temperature: 97.5 F Mental Status: Alert & Oriented Pain level:: 0 Nausea and/or vomitting:: None Intake, IV Amount: 0
[2022-06-07 10:53] LABS: Microscopic,Cath URINE MICROSCOPIC (MICROSCOPIC)
[2022-06-07 10:55] LABS: Appearance,Urine/Cath CLEAR (Clear); Bilirubin,Cath Negative (Negative); Blood, Urine/Cath Negative (Negative); Color,Urine/Cath YELLOW (Yellow); Glucose,Urine/Cath (UA) Negative (Negative); Ketones,Urine/Cath 1+ (Negative); Leukocyte Esterase,Cath Negative (Negative); Nitrate,Cath Negative (Negative); PH,Urine/Cath 6.5 (5.0-8.5); Protein,Urine/Cath TRACE (Negative); Urobilinogen,Cath 0.2 EU/dl (0.2)
[2022-06-07 11:16] LABS: Bacteria,Urine/Cath TRACE /lpf; Mucus,Urine/Cath Trace /lpf; Squamous Epithelial Ur./Cath Occasional #/hpf (0-5); WBC,Urine/Cath Occasional #/hpf (0-3)
--- NOTE | 2022-06-08 06:46 | P.PN_ITS ---
Internal Medicine - PN: Subj *Date: 06/08/22 *Time: 06:46 Interval history: She continues to do well. She is eating and drinking and ambulating. Her pain is well controlled with the T AP block. Her blood pressures are stable. Exam Vital signs and Labs for Last 24 Hours: Temp Pulse Resp BP Pulse Ox 98.3 F 103 H 18 133/70 99 06/07/22 17:40 06/07/22 17:40 06/07/22 17:40 06/07/22 17:40 06/07/22 17:40 Laboratory Results - last 24 hr 06/07/22 05:05: Urine Opiates Screen Negative, Urine Methadone Screen Negative, Ur Barbituates Screen Negative, Ur Phencyclidine Scrn Negative, Ur Amphetamines Screen Negative, U Benzodiazepines Scrn Negative, Urine Cocaine Screen Negative, U Marijuana (THC) Screen Negative 06/07/22 07:45: Urine Color Yellow, Urine Appearance Clear, Urine pH 6.5, Ur Specific [place] 1.020, Urine Protein Trace, Urine Glucose (UA) Negative, Urine Ketones 1+, Urine Blood Negative, Urine Nitrate Negative, Urine Bilirubin Negative, Urine Urobilinogen 0.2, Ur Leukocyte Esterase Negative, Urine RBC None, Urine WBC Occasional, Ur Squamous Epith Cells Occasional, Urine Bacteria Trace I & O for Last 24 hours: Intake & Output 06/05/22 06/06/22 06/07/22 06/08/22 11:59 11:59 11:59 11:59 Intake Total 1999 Balance 1999 Weight 282 lb - Constitutional no acute distress - *Routine HEENT Exam Head: Present: normocephalic Eye: Present: EOMI, PERRL ENT: Present: mucous membranes moist Assessment and Plan (1) 37 weeks gestation of Status: Acute Category: Medical Code(s): Z3A.37 - 37 weeks gestation of (2) Pre-eclampsia in third trimester Status: Acute Category: Medical Code(s): O14.93 - Unspecified pre-eclampsia, third trimester (3) BMI greater than 40 Status: Acute Category: Medical (4) tubal ligation planned Status: Acute Category: Medical (5) Previous section Status: Acute Category: Surgical Code(s): Z98.891 - History of uterine scar from previous surgery (6) Rh negative status during Problem details: Rhogam 03/27/22 Status: Acute Qualifiers: Trimester: third trimester Qualified Code(s): O26.893 - Other specified related conditions, third trimester; Z67.91 - Unspecified blood type, Rh negative Category: Medical Code(s): O26.899 - Other specified related conditions, unspecified trimester; Z67.91 - Unspecified blood type, Rh negative - Assessment and plan all Dx Assessment and Plan for all problems:: She continues to do well this morning. We will plan to send her home tomorrow if she is doing well.
[2022-06-08 07:19] LABS: Hematocrit 29.2 % (37.0-47.0); Hemoglobin 9.8 g/dL (12.2-16.2)
--- NOTE | 2022-06-09 09:47 | HMH.DCSUM ---
General - General Admission date:: 06/07/22 Discharge date: 06/09/22 HPI HPI: 26 yo 37 3/7, Dating by 9 02/14 ultrasound care at [facility]-- Dr. Valdivia Previous CS with G1 (9# 13oz); scheduled delivery at 39 weeks with this Increase in BP over past week, with 24 hr urine protein 345 Serum labs normal Immediate delivery recommended in context of mild preeclampsia Sterilization with tubal ligation requested and consent forms signed in office Rh negative maternal status with Rhogam prophylaxis given 03/27/22 Hospital Course Hospital Course: Went to repeat lower segment transverse section and tubal ligation on June 07, 2022. The baby delivered at 8:08 AM. The baby was a liveborn male child weighing 7 pounds 14 ounces and 19-1/2 inches long. Apgars were 8 at 1 minute and 9 at 5 minutes. She has done well and has remained afebrile throughout her hospitalization. She is eating and drinking and ambulating. She is bottlefeeding. Her lochia is normal. She has a negative blood and did receive RhoGAM. She is rubella immune, group B streptococcus negative. Her service center manager Dr. Escobar. She is discharged home to follow-up with Dr. Valdivia in approximately 3 weeks time. She will continue with her vitamins and iron. She was given the usual instructions with respect to limiting her activity, driving and sexual activity. She was given instructions with respect to wound care. She was given a prescription for Percocet 5/325 number 12 tablets. Her condition on discharge is stable improved. Rhogam Administration: Given Objective Vital signs: Temp Pulse Resp BP Pulse Ox 98.3 F 103 H 18 133/70 99 06/07/22 17:40 06/07/22 17:40 06/07/22 17:40 06/07/22 17:40 06/07/22 17:40 no acute distress - *Routine HEENT Exam Head: Present: normocephalic Eye: Present: EOMI, PERRL ENT: Present: mucous membranes moist Results Labs on day of discharge: Labs from last 24 hours 06/08/22 06:55 Screen Negative Rhogam Infusion Rhogam release DS: Diagnosis - Discharge Diagnosis (1) 37 weeks gestation of Status: Acute (2) Pre-eclampsia in third trimester Status: Acute (3) BMI greater than 40 Status: Acute (4) tubal ligation planned Status: Acute (5) Previous section Status: Acute (6) Rh negative status during Status: Acute Problem details: Rhogam 03/27/22 Discharge Plan - Patient Discharge Instructions ACTIVITY: No heavy lifting DIET: continue same diet Additional Instructions: Nothing in the vagina for 6 weeks No tub baths No heavy lifting/Driving until released Drink plenty of fluids Patient Instructions: Depression, Hemorrhage, DI for , DI for Pre-eclampsia, [facility] Post Discharge Instructions, Preventing the Spread of Coronavirus Discharge Instructions - Follow up Plan Follow up with: Salma Valdivia MD [Staff Physician] - 06/21/22 3:30 pm Disposition: Home, Self-Care Condition at discharge:: Stable Home Medications: Home Medications Medication Instructions Recorded Confirmed Type ondansetron 4 mg disintegrating 4 mg PO Q4H PRN #30 tab 12/10/21 06/07/22 Rx tablet vit no.95-ferrous 1 tab PO DAILY 12/10/21 06/07/22 History fumarate 28 mg-folic acid 800 mcg tablet albuterol sulfate 90 mcg/actuation 2 inh INHALATION NEEDED PRN g 02/07/22 06/07/22 History aerosol inhaler Oxycodone HCl/Acetaminophen 1 tab PO Q4-6H PRN #12 tablet 06/09/22 Rx [Percocet 5/325mg tablet] Prescriptions/Medication Reconciliation: New Oxycodone HCl/Acetaminophen [Percocet 5/325mg tablet] 1 tab PO Q4-6H PRN #12 tablet PRN Reason: Severe Pain Continued ondansetron 4 mg disintegrating tablet 4 mg PO Q4H PRN #30 tab PRN Reason: nausea and vomiting vit no.95-ferrous fumarate 28 m
[2022-08-07 14:06] LABS: POC Glucose,Bedside 78 (70-110)
== END 2022-06-09 10:40 | disposition home or self-care (01) | DRG 785 ==
PROVIDERS: Admitting Provider Obstetrics & Gynecology; PCP Nurse Practitioner Family; Visit Provider Obstetrics & Gynecology
PROC: 0UL70ZZ Occlusion of Bilateral Fallopian Tubes, Open Approach (ICD-10-PCS; CPT 59514; principal; 2022-06-07 07:30)
DX: O14.04 Mild to moderate pre-eclampsia, complicating childbirth (principal); Z3A.37 37 weeks gestation of pregnancy; Z37.0 Single live birth; O34.211 Maternal care for low transverse scar from previous cesarean delivery; Z30.2 Encounter for sterilization; O69.81X0 Labor and delivery complicated by cord around neck, without compression, not applicable or unspecified; N85.8 Other specified noninflammatory disorders of uterus
CPT/HCPCS: 59514; 58615; 36415; 59025; 80305; 81001; 82962; 85014; 85018; 85461; 86850; 94761; C9290; C9803; G0283; J2405; J2790; U0003; U0005

== ENCOUNTER 2022-11-04 10:59 | Emergency (ER) | payer OTHER, SELFPAY ==
--- NOTE | 2022-11-04 13:01 | EXP.UTC ---
Discharge Plan Disposition Patient Disposition: Home, Self-Care Condition: Good Prescriptions Prescriptions: New amoxicillin [amoxicillin] 500 mg tablet 500 mg PO TID 10 Days Qty: 30 0RF prednisone 10 mg tablet 10 mg PO BID 3 Days Qty: 6 0RF xaxusrsztkiqfyx-kzxsuydfl-QO [Bromfed DM] 2-30-10 mg/5 mL Syrup 5 ml PO Q6H PRN (Reason: Cough) Qty: 240 0RF oseltamivir [Tamiflu] 75 mg capsule 75 mg PO BID Qty: 10 0RF No Action ondansetron 4 mg tablet,disintegrating 4 mg PO Q4H PRN (Reason: nausea and vomiting) Qty: 30 4RF albuterol sulfate 90 mcg/actuation HFA aerosol inhaler 2 inh IH NEEDED PRN (Reason: shortness of breath or wheezing) Referrals Follow up/Referrals: Vani Geiger APRN [Primary Care Provider] - See instructions Activity Restrictions/Add. Instructions Additional Instructions/Restrictions: Drink plenty of fluids. Take tylenol or ibuprofen for pain or fever. Take the medications as directed. Follow up with your regular doctor. GO TO THE ER FOR ANY WORSENING SYMPTOMS Clinical Impressions Clinical Impression: Otitis media Instructions Patient Instructions: Middle Ear Infection Discharge ED Provider: Luis Morales [facility] General Stated complaint: ear pain, runny nose, fever Time Seen by Provider: 11/04/22 13:00 History of Present Illness Provider Complaint: She states that for the past 2 days she has had chills, body aches, and malaise Related Data Home Medications Medication Instructions Recorded Confirmed albuterol sulfate 90 mcg/actuation 2 inh inhalation NEEDED PRN 02/07/22 07/19/22 aerosol inhaler shortness of breath or wheezing Previous Rx's Medication Instructions Recorded ondansetron 4 mg disintegrating 4 mg PO Q4H PRN nausea and 12/10/21 tablet vomiting #30 tabs amoxicillin 500 mg tablet 500 mg PO TID 10 days #30 tabs 11/04/22 coticepfgufjnhr-bsyudsktadccrvu-PS 5 ml PO Q6H PRN Cough #240 mL 11/04/22 2 mg-30 mg-10 mg/5 mL oral syrup (Bromfed DM) oseltamivir 75 mg capsule (Tamiflu) 75 mg PO BID #10 caps 11/04/22 prednisone 10 mg tablet 10 mg PO BID 3 days #6 tabs 11/04/22 Allergies Allergy/AdvReac Type Severity Reaction Status Date / Time nitrofurantoin Allergy Intermediate Verified 11/04/22 13:18 [From Macrobid] [facility] Disclaimer: The information contained in this section may have been updated after the patient was seen, as this information can be updated by other users. Medical History Recurrent loss Surgical History H/O tubal ligation Previous section Social History Smoking Status: Never smoker alcohol intake: never substance use type: denies use current occupational status: employed Travel in the last 8 weeks: None household members: spouse housing: house current occupation: [employer] caffeine: Yes ROS Obtained: Yes All systems reviewed & no additional complaints except as documented Constitutional Constitutional: Reports chills and Reports fever(s) Eyes Eyes: Denies eye discharge ENT Ears, Nose, Mouth, and Throat: Reports as per HPI Cardiovascular Cardiovascular: Denies chest pain Respiratory Respiratory: Denies chest congestion and Reports cough Gastrointestinal Gastrointestingal: Reports nausea; Denies abdominal pain, constipation, cramping, diarrhea or vomiting Musculoskeletal Musculoskeletal: Denies arthralgias Integumentary/Breasts Skin/Breast: Denies rash Neurologic Neurologic: Denies paresthesias Physical Exam General General appearance: alert and in no apparent distress Head Head exam: atraumatic, normocephalic and normal inspection Eye Eye exam: Present normal appearance, PERRL and EOMI ENT ENT exam: Present normal exam, normal oropharynx, mucous membranes moist, TM's norm
[2022-11-04 13:09] LABS: Adenovirus,PCR Not Detected (NotDetected); Bordetella Pertussis Not Detected (NotDetected); Chlamydophila Pneumoniae, PCR Not Detected (NotDetected); Coronavirus 19, PCR Not Detected (NotDetected); Coronavirus 229E Not Detected (NotDetected); Coronavirus NL63 Not Detected (NotDetected); Coronavirus OC43 Not Detected (NotDetected); Coronovirus HKU1,PCR Not Detected (NotDetected); Human Metapneumovirus Not Detected (NotDetected); Influenza A, PCR Not Detected (NotDetected); Influenza AH1, 2009 Not Detected (NotDetected); Influenza AH1, PCR Not Detected (NotDetected); Influenza AH3,PCR Not Detected (NotDetected); Influenza B, PCR Not Detected (NotDetected); Mycoplasma Pneumoniae, PCR Not Detected (NotDetected); Parainfluenza 1, PCR Not Detected (NotDetected); Parainfluenza 2, PCR Not Detected (NotDetected); Parainfluenza 3, PCR Not Detected (NotDetected); Parainfluenza 4, PCR Not Detected (NotDetected); Respiratory Syncytial Virus Not Detected (NotDetected); Rhinovirus/Enterovirus Not Detected (NotDetected)
[2022-11-04 13:16] VITALS: BP 111/72; PULSE 93; RESP 16; TEMP 37; O2SAT 97; BMI 35.9
[2022-11-04 13:38] VITALS: BP 111/72; PULSE 93; RESP 16; TEMP 37
== END 2022-11-04 13:41 | disposition home or self-care (01) ==
PROVIDERS: Emergency Provider Nurse Practitioner Family; PCP Nurse Practitioner Family
DX: H66.90 Otitis media, unspecified, unspecified ear (principal)
CPT/HCPCS: 87581; 87632; 87798; 99212; C9803; G0463; U0003; U0005

== ENCOUNTER 2022-11-18 07:08 | Emergency (ER) | payer OTHER, SELFPAY ==
[2022-11-18 07:40] VITALS: BP 114/74; PULSE 119; RESP 18; TEMP 37.5; O2SAT 98; BMI 35.9
--- NOTE | 2022-11-18 07:59 | HMH.EDGENADL ---
Discharge Plan Disposition Patient Disposition: Home, Self-Care Condition: Good Chief Complaint: Fever Prescriptions Prescriptions: No Action ondansetron 4 mg tablet,disintegrating 4 mg PO Q4H PRN (Reason: nausea and vomiting) Qty: 30 4RF albuterol sulfate 90 mcg/actuation HFA aerosol inhaler 2 inh IH NEEDED PRN (Reason: shortness of breath or wheezing) amoxicillin [amoxicillin] 500 mg tablet 500 mg PO TID 10 Days Qty: 30 0RF prednisone 10 mg tablet 10 mg PO BID 3 Days Qty: 6 0RF yvpxdlntsqfmqmr-nvezgpweg-CP [Bromfed DM] 2-30-10 mg/5 mL Syrup 5 ml PO Q6H PRN (Reason: Cough) Qty: 240 0RF oseltamivir [Tamiflu] 75 mg capsule 75 mg PO BID Qty: 10 0RF Referrals Follow up/Referrals: Vani Geiger APRN [Primary Care Provider] - See instructions Activity Restrictions/Add. Instructions Additional Instructions/Restrictions: Hydrated. Motrin/Tylenol as needed for aches, pains, fever. Return to ER for worsening. PCP follow-up in 1 to 2 days Clinical Impressions Clinical Impression: Acute viral syndrome Instructions Patient Instructions: DI for Viral Syndrome Discharge ED Provider: Andrew Nichole General Adult HPI General Chief complaint: Fever Stated complaint: ear pain,sore throat,achey,fever Time Seen by Provider: 11/18/22 07:54 Mode of Arrival: Ambulatory Source of Information: Patient Limitations: No Limitations Description of Symptoms (Recalled from ER Triage Doc. by RN): Pt reports ear infection x3 weeks, states has been on 2 different antibiotics. Pt reports continuing R ear pain and painful to swallow. Pt reports friday she began running a fever, body aches, and chills. History of Present Illness HPI narrative: 27yo F presents to the emergency department secondary to cough, fatigue, body aches, subjective fever and chills. Reports is been ongoing since Friday. States recently diagnosed with otitis media 3 weeks ago and is been on 2 different antibiotics without significant improvement. Denies known sick contact but was in her PCP office on . Denies any chronic medical condition and denies any chronic medication. Related Data Home Medications Medication Instructions Recorded Confirmed albuterol sulfate 90 mcg/actuation 2 inh inhalation NEEDED PRN 02/07/22 07/19/22 aerosol inhaler shortness of breath or wheezing Previous Rx's Medication Instructions Recorded ondansetron 4 mg disintegrating 4 mg PO Q4H PRN nausea and 12/10/21 tablet vomiting #30 tabs amoxicillin 500 mg tablet 500 mg PO TID 10 days #30 tabs 11/04/22 tsbxtvrmnepnvpu-ihxhdtlphymkuwx-RV 5 ml PO Q6H PRN Cough #240 mL 11/04/22 2 mg-30 mg-10 mg/5 mL oral syrup (Bromfed DM) oseltamivir 75 mg capsule (Tamiflu) 75 mg PO BID #10 caps 11/04/22 prednisone 10 mg tablet 10 mg PO BID 3 days #6 tabs 11/04/22 Allergies Allergy/AdvReac Type Severity Reaction Status Date / Time nitrofurantoin Allergy Intermediate Verified 11/04/22 13:18 [From Macrobid] [facility] Disclaimer: The information contained in this section may have been updated after the patient was seen, as this information can be updated by other users. Medical History Recurrent loss Surgical History H/O tubal ligation Previous section Social History Smoking Status: Never smoker alcohol intake: never substance use type: denies use current occupational status: employed Travel in the last 8 weeks: None household members: spouse housing: house current occupation: [employer] caffeine: Yes ROS Obtained: Yes Systems reviewed as appropriate & no additional complaints except as documented Physical Exam General General appearance: alert and in no apparent distress Head Head exam: atraumatic and normocephalic Eye Eye ex
[2022-11-18 08:12] LABS: Strep Scrn Group A (Rapid) Negative (Negative)
[2022-11-18 08:37] LABS: Coronavirus 19, PCR Not Detected (NotDetected); Influenza A, PCR Not Detected (NotDetected); Influenza B, PCR Not Detected (NotDetected)
[2022-11-18 09:30] VITALS: BP 140/84; PULSE 111; RESP 18; TEMP 37.2; O2SAT 99
== END 2022-11-18 09:30 | disposition home or self-care (01) ==
PROVIDERS: Emergency Provider Family Medicine; PCP Nurse Practitioner Family
DX: B34.9 Viral infection, unspecified (principal); N96 Recurrent pregnancy loss; Z98.51 Tubal ligation status; Z98.891 History of uterine scar from previous surgery; Z20.822 Contact with and (suspected) exposure to COVID-19
CPT/HCPCS: 87430; 99283; 99284; C9803; U0003; U0005

== ENCOUNTER 2023-08-26 23:15 | Emergency (ER) | payer OTHER, SELFPAY ==
--- NOTE | 2023-08-26 23:13 | ECG_ITS ---
APPROVED REPORT Exam: Resting ECG HR:118 bpm ECG Measurements Heart Rate 118 AXES CA 164 P 60 QRSd 73 QRS 61 QT 295 T 41 QTc 365 Conclusion SINUS TACHYCARDIA ABNORMAL RHYTHM ECG UNCONFIRMED REPORT Electronically signed by : Fabrizio Velazquez MD 08/27/2023 07:53:04
[2023-08-26 23:16] VITALS: BP 133/84; PULSE 117; RESP 20; TEMP 37.4; O2SAT 98; BMI 37.3
--- NOTE | 2023-08-26 23:18 | XR_ITS ---
PROCEDURE INFORMATION: Exam: XR Chest Exam date and time: 08/26/2023 11:45 PM Age: 28 years old Clinical indication: Pain; Chest pressure; Additional info: Cp TECHNIQUE: Imaging protocol: Radiologic exam of the chest. Views: 1 view. COMPARISON: No relevant prior studies available. FINDINGS: Lungs: Right mid lung zone calcified granuloma. No consolidation. Pleural spaces: Unremarkable. No pleural effusion. No pneumothorax. Heart/Mediastinum: Unremarkable. No cardiomegaly. Vasculature: Unremarkable. Bones/joints: Unremarkable. IMPRESSION: No acute findings.
[2023-08-26 23:19] VITALS: PULSE 117
--- NOTE | 2023-08-26 23:19 | HMH.EDGENADL ---
Discharge Plan Disposition Patient Disposition: Home, Self-Care Condition: Good Prescriptions Prescriptions: No Action No Known Home Medications Referrals Follow up/Referrals: Provider,Referral, [Primary Care Provider] - See instructions Activity Restrictions/Add. Instructions Additional Instructions/Restrictions: You were evaluated in the emergency department today for concerns of chest pain. Your x-ray, CT scan, and labs are all very reassuring. I did not identify any abnormalities that require further intervention. Your symptoms are likely related to a virus. Continue taking Tylenol and ibuprofen regularly to control pain, body aches, fever. Continue taking any other home medications as previously prescribed. Make an appointment with your primary care physician for reevaluation in 2 to 3 days. Return to the emergency department with any new, worsening, or otherwise concerning symptoms. Clinical Impressions Clinical Impression: Chest pain Qualifiers: Chest pain type: unspecified Qualified Code(s): R07.9 - Chest pain, unspecified Discharge ED Provider: Diana Price General Adult HPI General Chief complaint: Chest Pain Stated complaint: CP Time Seen by Provider: 08/26/23 23:17 History of Present Illness HPI narrative: This otherwise healthy 28-year-old female presents to the emergency department with concerns of chest pain. Patient has had symptoms of cough, congestion, fever, sore throat for the last 3 to 4 days. She has not taken any medications for her fevers which have reached a Tmax of 102. Patient states that this morning while at work she started developing chest pain that she describes as a burning sensation throughout the whole chest. She said it is worse with deep inspiration. She has not taken any medications for her symptoms. Patient denies any history of lung disease, no oral contraceptives, no smoking, no alcohol, no illicit drug use. Patient states she has been exposed to multiple people with similar symptoms including her stepson. She states she took an ykmn-apj-nazqevz COVID test earlier today which was negative. She does not wish to be tested at this time. Related Data Home Medications Medication Instructions Recorded Confirmed No Known Home Medications 08/26/23 08/26/23 Allergies Allergy/AdvReac Type Severity Reaction Status Date / Time nitrofurantoin Allergy Intermediate Verified 08/26/23 23:30 [From Macrobid] [facility] Disclaimer: The information contained in this section may have been updated after the patient was seen, as this information can be updated by other users. Medical History depression Recurrent loss Surgical History H/O hernia repair H/O tubal ligation Previous section Social History Smoking Status: Never smoker alcohol intake: never substance use type: denies use current occupational status: employed Travel in the last 8 weeks: None household members: spouse housing: house current occupation: [employer] caffeine: Yes ROS Obtained: Yes All systems reviewed & no additional complaints except as documented Constitutional Constitutional: Denies chills, Reports fever(s), Reports headache(s) and Denies weakness Eyes Eyes: Denies change in vision ENT Ears, Nose, Mouth, and Throat: Denies dizziness, Reports headache(s), Reports nasal congestion and Reports sore throat Cardiovascular Cardiovascular: Reports chest pain, Denies dyspnea and Denies leg edema Respiratory Respiratory: Reports cough and Denies dyspnea Gastrointestinal Gastrointestingal: Denies constipation, diarrhea, nausea or vomiting Genitourinary Female Genitourinary: Denies dysuria Musculoskeletal Musculoskeletal: Denies arthralgias, Denies
[2023-08-26 23:25] LABS: Basophils % 0.2 % (0.1-2.0); Eosinophils # 0.1 K/mm3 (0.0-0.4); Eosinophils % 0.7 % (0.1-12.0); Hematocrit 35.7 % (37.0-47.0); Hemoglobin 12.2 g/dL (12.2-16.2); Lymphocytes # 1.3 K/mm3 (0.7-4.5); Lymphocytes % 19.3 % (10-50); Mean Corpuscular HGB Conc 34.2 g/dL (31.8-35.4); Mean Corpuscular Hemoglobin 28.5 pg (27.0-31.2); Mean Corpuscular Volume 83.3 fl (81-99); Mean Platelet Volume 8.2 fl (7.4-10.4); Monocytes # 0.3 K/mm3 (0.1-1.0); Monocytes % 4.6 % (1.7-9.3); Neutrophils % 75.2 % (37.0-80.0); Platelet Count 238 K/mm3 (142-424); Red Blood Count 4.28 M/mm3 (4.20-5.40); Red Cell Distribution Width 13.4 % (11.5-17.5); White Blood Count 6.6 K/mm3 (4.8-10.8)
[2023-08-26 23:32] VITALS: BP 114/70; PULSE 113; RESP 23; O2SAT 98
[2023-08-26 23:38] LABS: Alanine Aminotransferase 29 U/L (12-78); Albumin Level 4.2 g/dl (3.5-5.0); Albumin/Globulin Ratio 1.4 (1.1-1.8); Alkaline Phosphatase 84 U/L (38-126); Anion Gap 15.7 mEq/L (5-15); Aspartate Amino Transferase 32 U/L (14-36); Blood Urea Nitrogen 13 mg/dl (7-17); Carbon Dioxide 23 mmol/L (22.0-30.0); Chloride 103 mmol/L (98-107); Creatinine Clearance Estimated 219 mL/min (50-200); Estimated Glomerular Filt Rate 98 ml/min (>60); GFR (African American) 119 ML/MIN (>60); Globulin 3.1 g/dL (1.3-3.2); Glucose 93 mg/dl (74-100); Potassium 3.7 mmoL/L (3.5-5.1); Sodium 138 mmol/L (136-145); Total Protein,Serum 7.3 g/dl (6.3-8.2)
[2023-08-26 23:43] LABS: D-Dimer 0.93 ug/mL (0.0-0.5)
[2023-08-26 23:47] LABS: HCG Qualitative, Serum Negative (Negative)
[2023-08-27] VITALS: BP 113/71; PULSE 105; RESP 17; O2SAT 98
[2023-08-27 00:03] LABS: Bilirubin,Total 0.1 mg/dl (0.2-1.3); Troponin I < 0.01 ng/ml (0.00-0.034)
--- NOTE | 2023-08-27 00:08 | CT_ITS ---
PROCEDURE INFORMATION: Exam: CTA Chest With Contrast Exam date and time: 08/27/2023 12:29 AM Age: 28 years old Clinical indication: Abnormal findings; Abnormal diagnostic tests; Elevated d-dimer; Additional info: Cp dimer elevated TECHNIQUE: Imaging protocol: Computed tomographic angiography of the chest with contrast. Exam focused on the arteries. 3D rendering (Not supervised by radiologist): MIP and/or 3D reconstructed images were created by the technologist. Radiation optimization: All CT scans at this facility use at least one of these dose optimization techniques: automated exposure control; mA and/or kV adjustment per patient size (includes targeted exams where dose is matched to clinical indication); or iterative reconstruction. Contrast material: ISOVUE; Contrast volume: 70 ml; Contrast route: INTRAVENOUS (IV); REPORTING DATA: Count of CT and Cardiac NM exams in prior 12 months: This patient has received 0 known CTs and 0 known cardiac nuclear medicine studies in the 12 months prior to the current study. COMPARISON: CR XR CHEST PORTABLE 08/26/2023 11:45 PM FINDINGS: Pulmonary arteries: Normal. No pulmonary emboli. Aorta: Unremarkable. No aortic aneurysm. No aortic dissection. Lungs: There are several calcified granulomas within the right middle lobe. Pleural spaces: Unremarkable. No pneumothorax. No pleural effusion. Heart: Unremarkable. No cardiomegaly. No pericardial effusion. Lymph nodes: Small calcified right hilar lymph nodes are noted. Bones/joints: Unremarkable. No acute fracture. Soft tissues: Unremarkable. IMPRESSION: 1. No acute findings. No pulmonary embolus. Small distal pulmonary emboli could be missed due to technical factors. 2. Findings consistent with prior granulomatous exposure.
--- NOTE | 2023-08-27 00:22 | PC.NURSE ---
called rad to update on cta order. states she is setting up room for ct
--- NOTE | 2023-08-27 00:33 | PC.NURSE ---
rad at bedside. pt transported to ct via wc. no acute distress obs at this time.
[2023-08-27 01:00] VITALS: BP 102/60; PULSE 100; RESP 20; O2SAT 96
--- NOTE | 2023-08-27 01:14 | PC.NURSE ---
Patient states that the pain in her chest in down to a 4 from the 10 it was before. Patient updated to know that we will redraw a trop around 2 am and then wait for those results.
[2023-08-27 01:30] VITALS: BP 119/74; PULSE 92; RESP 18; O2SAT 96
[2023-08-27 02:00] VITALS: BP 92/54; PULSE 90; RESP 19; O2SAT 96
[2023-08-27 02:19] LABS: Troponin I < 0.01 ng/ml (0.00-0.034)
[2023-08-27 02:35] VITALS: BP 103/51; PULSE 95; RESP 16; TEMP 36.6
== END 2023-08-27 02:37 | disposition home or self-care (01) ==
PROVIDERS: Emergency Provider Emergency Medicine
DX: R07.9 Chest pain, unspecified (principal); R00.0 Tachycardia, unspecified
CPT/HCPCS: 71045; 71275; 80053; 84484; 84703; 85025; 85378; 93005; 96360; 99285; Q9967